=== PATIENT | male | born 1935 | race Caucasian/White ===

== ENCOUNTER 2017-12-08 14:47 | Emergency (ER) | payer OTHER ==
[~2017-12-08] VITALS: Ht 167.6 cm; Wt 81.7 kg
--- NOTE | ~2017-12-08 | EKG ---
[facility] [place] [address] ELECTROCARDIOGRAM REPORT Name: URSZULA SALINAS Room #: DEP Charley#: [id number] Admission: 12/08/17 Attend Phys: Discharge: 12/08/17 Date of : 34 Report #: [id number] THIS REPORT FOR: //name// [facility] ED Test Date: 2017-12-08 Test Time: 15:09:18 Pat Name: URSZULA SALINAS Department: Room: Gender: Emergency Room Physician: MZOOK : 1935 Requested By: Jaquelin Chan Order Number: [id number] MD: Liam Cabezas Measurements Intervals [place] Rate: 60 P: [place]: QRS: 266 QRSD: 122 T: 32 QT: 478 QTc: 478 Interpretive Statements Afib/flutter and ventricular-paced rhythm No further analysis attempted due to paced rhythm Compared to ECG 04/10/2017 07:07:33 No significant changes Electronically Signed On 12-09-2017 8:23:18 CIGAR [employer] by Liam Cabezas [email or web address] <ELECTRONICALLY SIGNED> By: Liam Cabezas MD, [facility] 12/09/17 0823 1509 [id number] Liam Cabezas MD, FACC /EPI
[~2017-12-08 14:47] MED LIST: ADULT LOW DOSE81 MG PO; ALDACTONE50 MG PO; AMIODARONE CV KI1 E1 IV; AVANDARYL 4 MG1 EACH PO; BENICAR20 MG PO; BREO ELLIPTA 11 EACH IH; CARVEDILOL25 MG PO; CIPRO250 M1 PO; CO Q-1030 MG PO; CO Q1060 MG PO; COREG; COREG CR20 MG PO; COREG25 MG PO; COUMADIN 2 MG TA2 M1 PO; COUMADIN 4 MG TA4 M1 PO; DEMADEX20 MG PO; ENOXAPARIN100 MG/1 M INJECTION; FENOFIBRATE160 MG PO; FENOGLIDE40 MG PO; FINOFIBRATE PO; FISH OIL 1,0001 EACH PO; FISHOIL; GLUCOPHAGE1000 MG PO; LIPITOR 20 MG T20 M1 PO; METFORMIN; NYSTATIN1 EA10 TOP; OMEPRAZOLE 20 M20 M1 PO; OMEPRAZOLE20 MG PO; PACERONE 200 M200 M1 PO; PATADAY2.5 ML OPHTHALMIC; PLAVIX 75 MG TA75 M1 PO; PRAVACHOL40 MG PO; TORSEMIDE20 MG PO
[2017-12-08 15:44] LABS: HEMATOCRIT 35.5 % (42.0-52.0); HEMOGLOBIN 11.8 gm/dL (14.0-18.0); MCH 30.7 pg (26.0-34.0); MCHC 33.2 g/dL (28.0-37.0); MCV 92.3 fL (80.0-100.0); PLATELET COUNT 150 thou/uL (150-400); RBC 3.85 mil/uL (4.50-6.00); WBC 6.5 thou/uL (4.0-11.0)
[2017-12-08 16:04] LABS: ABSOLUTE NEUTROPHILS 4.3 thou/uL (1.4-8.2)
[2017-12-08 16:05] LABS: OVALOCYTES FEW; POLYCHROMASIA 1+
[2017-12-08 16:06] LABS: ANION GAP 3 mmol/L (7-16); BUN 16 mg/dL (7-18); CALCIUM 9.4 mg/dL (8.5-10.1); CHLORIDE 104 mmol/L (98-107); CO2 29 mmol/L (21-32); CREATININE 0.9 mg/dL (0.7-1.3); GLUCOSE 101 mg/dL (74-106); POTASSIUM 4.1 mmol/L (3.5-5.1); SODIUM 136 mmol/L (136-145)
[2017-12-08 16:14] LABS: TROPONIN-I < 0.04 ng/mL (<0.06)
[2017-12-08] MEDS ORDERED: TRAZODONE HCL50 MG PO (16:44)
[2017-12-08 16:57] VITALS: BP 104/60
[2017-12-08 17:03] LABS: INR 1.2; PROTIME 12.7 Seconds (9.3-11.4)
== END 2017-12-08 18:17 | disposition home or self-care (01) ==
LOC: ER 14:47
PROVIDERS: Emergency Medicine
DX: R60.0 Localized edema (principal); I48.91 Unspecified atrial fibrillation; I11.0 Hypertensive heart disease with heart failure; I50.9 Heart failure, unspecified; E11.9 Type 2 diabetes mellitus without complications; K21.9 Gastro-esophageal reflux disease without esophagitis; E78.5 Hyperlipidemia, unspecified; M19.90 Unspecified osteoarthritis, unspecified site; I25.10 Atherosclerotic heart disease of native coronary artery without angina pectoris; I25.2 Old myocardial infarction; Z88.0 Allergy status to penicillin; Z88.5 Allergy status to narcotic agent; G47.9 Sleep disorder, unspecified

== ENCOUNTER → 2018-02-28 | Outpatient (CLI) | payer OTHER ==
[~2018-02-28] MED LIST changes: +TRAZODONE HCL50 MG PO
== END ==
LOC: SLEEPLAB 16:39
DX: G47.33 Obstructive sleep apnea (adult) (pediatric) (principal)

== ENCOUNTER → 2018-04-10 | Outpatient (CLI) | payer OTHER | LOC: HYPER 07:07 | DX: E11.622 Type 2 diabetes mellitus with other skin ulcer (principal); L97.811 Non-pressure chronic ulcer of other part of right lower leg limited to breakdown of skin; L97.821 Non-pressure chronic ulcer of other part of left lower leg limited to breakdown of skin; I87.2 Venous insufficiency (chronic) (peripheral); L08.9 Local infection of the skin and subcutaneous tissue, unspecified; R60.0 Localized edema; I48.2 Chronic atrial fibrillation; I21.3 ST elevation (STEMI) myocardial infarction of unspecified site; E11.22 Type 2 diabetes mellitus with diabetic chronic kidney disease; I13.0 Hypertensive heart and chronic kidney disease with heart failure and stage 1 through stage 4 chronic kidney disease, or unspecified chronic kidney disease; N18.2 Chronic kidney disease, stage 2 (mild); I50.9 Heart failure, unspecified; I25.10 Atherosclerotic heart disease of native coronary artery without angina pectoris; M19.90 Unspecified osteoarthritis, unspecified site; K21.9 Gastro-esophageal reflux disease without esophagitis; Z79.01 Long term (current) use of anticoagulants; Z87.891 Personal history of nicotine dependence ==

== ENCOUNTER → 2018-04-24 | Outpatient (CLI) | payer OTHER | LOC: HYPER 06:51 | DX: E11.622 Type 2 diabetes mellitus with other skin ulcer (principal); L97.821 Non-pressure chronic ulcer of other part of left lower leg limited to breakdown of skin; L97.811 Non-pressure chronic ulcer of other part of right lower leg limited to breakdown of skin; I87.2 Venous insufficiency (chronic) (peripheral); E11.22 Type 2 diabetes mellitus with diabetic chronic kidney disease; I13.0 Hypertensive heart and chronic kidney disease with heart failure and stage 1 through stage 4 chronic kidney disease, or unspecified chronic kidney disease; N18.2 Chronic kidney disease, stage 2 (mild); I50.9 Heart failure, unspecified; E11.65 Type 2 diabetes mellitus with hyperglycemia; L08.9 Local infection of the skin and subcutaneous tissue, unspecified; I48.2 Chronic atrial fibrillation; I25.2 Old myocardial infarction; I21.3 ST elevation (STEMI) myocardial infarction of unspecified site; I48.91 Unspecified atrial fibrillation; I25.10 Atherosclerotic heart disease of native coronary artery without angina pectoris; E78.5 Hyperlipidemia, unspecified; M19.90 Unspecified osteoarthritis, unspecified site; K21.9 Gastro-esophageal reflux disease without esophagitis; G47.30 Sleep apnea, unspecified; Z98.49 Cataract extraction status, unspecified eye; Z95.0 Presence of cardiac pacemaker; Z87.891 Personal history of nicotine dependence ==

== ENCOUNTER → 2018-05-22 | Outpatient (CLI) | payer OTHER | LOC: HYPER 06:34 | DX: E11.622 Type 2 diabetes mellitus with other skin ulcer (principal); L97.821 Non-pressure chronic ulcer of other part of left lower leg limited to breakdown of skin; L97.811 Non-pressure chronic ulcer of other part of right lower leg limited to breakdown of skin; I87.2 Venous insufficiency (chronic) (peripheral); E11.22 Type 2 diabetes mellitus with diabetic chronic kidney disease; I13.0 Hypertensive heart and chronic kidney disease with heart failure and stage 1 through stage 4 chronic kidney disease, or unspecified chronic kidney disease; N18.2 Chronic kidney disease, stage 2 (mild); I50.9 Heart failure, unspecified; L08.9 Local infection of the skin and subcutaneous tissue, unspecified; I48.2 Chronic atrial fibrillation; I21.3 ST elevation (STEMI) myocardial infarction of unspecified site; I25.10 Atherosclerotic heart disease of native coronary artery without angina pectoris; E78.5 Hyperlipidemia, unspecified; K21.9 Gastro-esophageal reflux disease without esophagitis; M19.90 Unspecified osteoarthritis, unspecified site; G47.30 Sleep apnea, unspecified; Z95.0 Presence of cardiac pacemaker; Z98.49 Cataract extraction status, unspecified eye; Z79.01 Long term (current) use of anticoagulants; Z87.891 Personal history of nicotine dependence ==

== ENCOUNTER → 2018-06-09 | Outpatient (CLI) | payer OTHER | LOC: HYPER 07:35 | DX: E11.622 Type 2 diabetes mellitus with other skin ulcer (principal); I87.321 Chronic venous hypertension (idiopathic) with inflammation of right lower extremity; L97.811 Non-pressure chronic ulcer of other part of right lower leg limited to breakdown of skin; I87.322 Chronic venous hypertension (idiopathic) with inflammation of left lower extremity; L97.821 Non-pressure chronic ulcer of other part of left lower leg limited to breakdown of skin; E11.22 Type 2 diabetes mellitus with diabetic chronic kidney disease; N18.2 Chronic kidney disease, stage 2 (mild); I21.3 ST elevation (STEMI) myocardial infarction of unspecified site; I48.2 Chronic atrial fibrillation; I25.10 Atherosclerotic heart disease of native coronary artery without angina pectoris; E78.5 Hyperlipidemia, unspecified; M19.90 Unspecified osteoarthritis, unspecified site; K21.9 Gastro-esophageal reflux disease without esophagitis; G47.30 Sleep apnea, unspecified; Z87.891 Personal history of nicotine dependence; Z79.01 Long term (current) use of anticoagulants ==

== ENCOUNTER → 2018-07-20 | Outpatient (CLI) | payer OTHER | LOC: HYPER 06:58 | DX: E11.622 Type 2 diabetes mellitus with other skin ulcer (principal); I87.321 Chronic venous hypertension (idiopathic) with inflammation of right lower extremity; L97.811 Non-pressure chronic ulcer of other part of right lower leg limited to breakdown of skin; I87.322 Chronic venous hypertension (idiopathic) with inflammation of left lower extremity; L97.821 Non-pressure chronic ulcer of other part of left lower leg limited to breakdown of skin; I48.2 Chronic atrial fibrillation; E11.22 Type 2 diabetes mellitus with diabetic chronic kidney disease; I13.0 Hypertensive heart and chronic kidney disease with heart failure and stage 1 through stage 4 chronic kidney disease, or unspecified chronic kidney disease; N18.2 Chronic kidney disease, stage 2 (mild); I50.9 Heart failure, unspecified; I21.3 ST elevation (STEMI) myocardial infarction of unspecified site; I89.0 Lymphedema, not elsewhere classified; I25.10 Atherosclerotic heart disease of native coronary artery without angina pectoris; E78.5 Hyperlipidemia, unspecified; I25.2 Old myocardial infarction; K21.9 Gastro-esophageal reflux disease without esophagitis; G47.30 Sleep apnea, unspecified; M19.90 Unspecified osteoarthritis, unspecified site; Z87.891 Personal history of nicotine dependence; Z79.01 Long term (current) use of anticoagulants ==

== ENCOUNTER 2018-08-09 10:36 | Inpatient (IN) | payer OTHER ==
[~2018-08-09] VITALS: Ht 172.7 cm; Wt 77.6 kg
--- NOTE | ~2018-08-09 | HC ---
[facility] [address] CONSULTATION Name: URSZULA SALINAS Room #: 461-P ADM IN M.R.#: [id number] Admission: 08/09/18 Attend Phys: Anson Jarvis DO Discharge: Date of : 34 Report #: [id number] THIS REPORT FOR: //name// CC: Anson Owens DATE OF SERVICE: 08/10/2018 CHIEF COMPLAINT: Left lower extremity ulcerations with bilateral lower extremity edema. HISTORY OF PRESENT ILLNESS: This is an 82-year-old male patient who presents to the hospital for evaluation of intractable back pain. He has been a patient of ours in the wound clinic for a venous-type ulceration of both lower extremities. We have been managing him with local dressings and multilayer compression bandaging and he has done quite well. He is here in the hospital. We have been asked to see him with regard to ongoing wound care. The patient's past medical history is positive for hypertension, hyperlipidemia, diabetes mellitus, obstructive sleep apnea and currently for back pain. ALLERGIES: PENICILLIN, PROPOXYPHENE AND MORPHINE. MEDICATIONS: Include aspirin, Glucophage, omeprazole, torsemide, fish oil, Coumadin, atorvastatin and fluticasone. PAST MEDICAL HISTORY: Positive for atrial fibrillation, hypertension, diabetes, cardiomyopathy, sleep apnea, coronary artery disease, previous myocardial infarction and chronic kidney disease stage 2. SOCIAL HISTORY: The patient is a previous smoker. Denies alcohol use or drug use. FAMILY HISTORY: Noncontributory. REVIEW OF SYSTEMS: CONSTITUTIONAL: The patient denies fever, chills or weight loss. NEUROLOGIC: The patient denies focal weakness, numbness or tingling. EYES: The patient denies visual changes, redness or drainage. ENT: The patient denies earache, nasal drainage or sore throat. CARDIOVASCULAR: The patient denies chest pain, palpitations or diaphoresis. PULMONARY: The patient denies cough or shortness of breath. GASTROINTESTINAL: The patient denies nausea, vomiting, diarrhea or abdominal pain. ORTHOPEDIC: The patient does complain of pain in his low back. Denies radiation to his extremities. He states it is somewhat improved since being hospitalized. Other systems in a 14-point review of systems are negative. [facility] [address] [place] [address] CONSULTATION Name: URSZULA SALINAS Room #: 461-P ADM IN M.R.#: [id number] Admission: 08/09/18 Attend Phys: Anson Jarvis DO Discharge: Date of : 34 Report #: [id number] PHYSICAL EXAMINATION: VITAL SIGNS: At this time include pulse rate 60, blood pressure 117/76. Temperature is not yet documented. GENERAL: This is a chronically ill-appearing male patient who appears to be in minimal distress. HEENT: Head normocephalic. Nose and throat are clear. NECK: Supple. LUNGS: Clear. ABDOMEN: Soft. EXTREMITIES: Lower extremities demonstrate that there are two small ulcerations on the lateral aspect of the left lower leg. These are improved since last evaluation. The edema seems well controlled with the compression bandaging. CLINICAL IMPRESSION: 1. Venous-type ulcerations, left lower extremity. 2. Intractable back pain. 3. Diabetes mellitus. 4. Venous insufficiency, stasis dermatitis, bilateral lower extremities. 5. History of atrial fibrillation, currently rate controlled. 6. History of congestive heart failure. 7. Chronic kidney disease stage 2. RECOMMENDATIONS: At this point in time, we will maintain lower extremity edema control with continued use of multilayer compression bandage and we will likely change these twice a week and as needed. The patient is agreeable to this plan of care. We will recommend aggressive nutritional support to maximize wound healing and glycemic control. Continue with current medications. <ELECTRONICALLY SIGNED> By: Vaibhav Travis MD 08/11/18 0827 1126 0107 Vaibhav Travis MD /nt
[2018-08-09 10:41] VITALS: BP 116/62
[2018-08-09 11:55] LABS: WBC 10.1 thou/uL (4.0-11.0)
[2018-08-09 12:00] LABS: MCH 30.7 pg (26.0-34.0)
[2018-08-09 12:05] LABS: CALCIUM 9.5 mg/dL (8.5-10.1); CREATININE 1.1 mg/dL (0.7-1.3); POTASSIUM 4.2 mmol/L (3.5-5.1)
[2018-08-09 12:06] LABS: HEMATOCRIT 32.1 % (42.0-52.0); HEMOGLOBIN 10.6 gm/dL (14.0-18.0); MCHC 33.1 g/dL (28.0-37.0); PLATELET COUNT 221 thou/uL (150-400); RBC 3.45 mil/uL (4.50-6.00); RDW 15.1 % (10.5-14.5)
[2018-08-09 12:25] LABS: ABSOLUTE NEUTROPHILS 8.7 thou/uL (1.4-8.2)
[2018-08-09 12:26] LABS: PLATELET ESTIMATE NORMAL
[2018-08-09 13:27] LABS: URINE BILIRUBIN NEGATIVE (Negative); URINE BLOOD NEGATIVE (Negative); URINE CLARITY CLEAR; URINE COLOR YELLOW; URINE GLUCOSE-RANDOM* NEGATIVE (Negative); URINE KETONES TRACE (Negative); URINE LEUKOCYTES-REFLEX NEGATIVE (Negative); URINE NITRITE-REFLEX NEGATIVE (Negative); URINE PROTEIN (DIPSTICK) TRACE (Negative); URINE SPECIFIC GRAVITY 1.025 (1.005-1.035)
[2018-08-09 14:47] VITALS: BP 102/52
[2018-08-09 16:17] VITALS: BP 105/53
[2018-08-09 16:54] VITALS: BP 102/52
[2018-08-09 17:50] VITALS: BP 107/61
[2018-08-10 00:05] VITALS: BP 96/73
[2018-08-10 04:24] VITALS: BP 107/59
[2018-08-10 06:25] LABS: PROTIME 122.4 Seconds (9.3-11.4)
[2018-08-10 06:41] LABS: INR 12.5
[2018-08-10 07:35] VITALS: BP 117/76
[2018-08-10 12:36] LABS: PROTIME 152.6 Seconds (9.3-11.4)
[2018-08-10 12:43] LABS: INR 15.6
[2018-08-10 14:02] VITALS: BP 88/53
[2018-08-10 14:41] LABS: ABSOLUTE NEUTROPHILS 6.5 thou/uL (1.4-8.2); BASOPHILS 0.5 % (0.0-2.0); EOSINOPHILS 2.4 % (0.0-3.0); HEMATOCRIT 30.4 % (42.0-52.0); HEMOGLOBIN 10.3 gm/dL (14.0-18.0); LYMPHOCYTES 7.9 % (24.0-44.0); MCH 31.5 pg (26.0-34.0); MCHC 33.8 g/dL (28.0-37.0); MONOCYTES 7.8 % (1.0-8.0); PLATELET COUNT 192 thou/uL (150-400); POLYS 81.4 % (36.0-66.0); RBC 3.27 mil/uL (4.50-6.00); RDW 15.5 % (10.5-14.5)
[2018-08-10 18:44] VITALS: BP 89/50
[2018-08-10 20:17] VITALS: BP 93/53
[2018-08-10 20:52] LABS: PROTIME 183.7 Seconds (9.3-11.4)
[2018-08-10 20:59] LABS: INR > 18.0
[2018-08-11 04:10] VITALS: BP 110/66
[2018-08-11 06:50] LABS: PROTIME 76.5 Seconds (9.3-11.4)
[2018-08-11 07:10] LABS: INR 7.7
[2018-08-11 08:00] VITALS: BP 119/65
[2018-08-11 22:04] VITALS: BP 102/46
[2018-08-12 08:02] LABS: HEMATOCRIT 31.2 % (42.0-52.0); HEMOGLOBIN 10.4 gm/dL (14.0-18.0); MCHC 33.4 g/dL (28.0-37.0); MCV 92.9 fL (80.0-100.0); RBC 3.35 mil/uL (4.50-6.00); RDW 15.2 % (10.5-14.5); WBC 5.4 thou/uL (4.0-11.0)
[2018-08-12 08:14] VITALS: BP 101/60
[2018-08-12 08:14] LABS: PROTIME 16.8 Seconds (9.3-11.4)
[2018-08-12 08:15] LABS: CALCIUM 9.1 mg/dL (8.5-10.1); INR 1.7; POTASSIUM 3.6 mmol/L (3.5-5.1)
[2018-08-12 21:32] VITALS: BP 108/62
[2018-08-13 08:00] VITALS: BP 102/58
[2018-08-13 08:04] VITALS: BP 102/58
[2018-08-13 11:25] LABS: INR 1.4; PROTIME 14.6 Seconds (9.3-11.4)
[2018-08-13 17:20] VITALS: BP 122/65
[2018-08-13 19:48] VITALS: BP 105/56
[2018-08-14 07:20] VITALS: BP 109/60
[2018-08-14 08:02] LABS: INR 1.4
[2018-08-14 23:34] VITALS: BP 120/62
[2018-08-15 07:45] VITALS: BP 111/67
[2018-08-15 08:25] LABS: INR 1.5; PROTIME 15.2 Seconds (9.3-11.4)
[2018-08-15 08:48] VITALS: BP 111/67
[2018-08-15] MEDS ORDERED: CYCLOBENZAPRINE5 MG PO (12:39)
[2018-08-15] MEDS ORDERED: GLIPIZIDE 5 MG T5 MG PO (12:49)
[2018-08-15] MEDS ORDERED: VOLTAREN GEL 1100 G1 TOP (12:49)
== END 2018-08-15 16:00 | DRG 551 ==
LOC: ER 10:36 → SICU 13:59 → EROBS 13:59 → 4W 13:59 → SICU 08-11 13:44
PROVIDERS: Family Medicine; Family Medicine Geriatric Medicine; Internal Medicine; Nurse Practitioner; Student in an Organized Health Care Education/Training Program
PROC: 5A09357 Assistance with Respiratory Ventilation, Less than 24 Consecutive Hours, Continuous Positive Airway Pressure (ICD-10-PCS; principal; 2018-08-10)
PROC: 5A09357 Assistance with Respiratory Ventilation, Less than 24 Consecutive Hours, Continuous Positive Airway Pressure (ICD-10-PCS; 2018-08-11)
DX: M47.896 Other spondylosis, lumbar region (principal); E43 Unspecified severe protein-calorie malnutrition; I42.9 Cardiomyopathy, unspecified; I13.0 Hypertensive heart and chronic kidney disease with heart failure and stage 1 through stage 4 chronic kidney disease, or unspecified chronic kidney disease; I50.22 Chronic systolic (congestive) heart failure; B49 Unspecified mycosis; I48.91 Unspecified atrial fibrillation; K21.9 Gastro-esophageal reflux disease without esophagitis; R26.2 Difficulty in walking, not elsewhere classified; I87.2 Venous insufficiency (chronic) (peripheral); R26.9 Unspecified abnormalities of gait and mobility; N18.3 Chronic kidney disease, stage 3 (moderate); R62.7 Adult failure to thrive; I25.10 Atherosclerotic heart disease of native coronary artery without angina pectoris; G47.33 Obstructive sleep apnea (adult) (pediatric); E11.22 Type 2 diabetes mellitus with diabetic chronic kidney disease; E78.5 Hyperlipidemia, unspecified; M19.90 Unspecified osteoarthritis, unspecified site; I25.2 Old myocardial infarction; Z95.810 Presence of automatic (implantable) cardiac defibrillator; Z95.5 Presence of coronary angioplasty implant and graft; Z87.891 Personal history of nicotine dependence; Z90.49 Acquired absence of other specified parts of digestive tract; Z79.01 Long term (current) use of anticoagulants; Z79.82 Long term (current) use of aspirin; Z79.51 Long term (current) use of inhaled steroids; Z79.84 Long term (current) use of oral hypoglycemic drugs; Z79.899 Other long term (current) drug therapy; Z88.5 Allergy status to narcotic agent; Z88.0 Allergy status to penicillin; Z88.8 Allergy status to other drugs, medicaments and biological substances; Z28.21 Immunization not carried out because of patient refusal
CPT/HCPCS: 10040; 15000

== ENCOUNTER 2018-08-23 06:50 | Inpatient (IN) | payer OTHER ==
[~2018-08-23] VITALS: Ht 167.6 cm; Wt 80.3 kg
--- NOTE | ~2018-08-23 | HC ---
[facility] [place] [address] CONSULTATION Name: URSZULA SALINAS Room #: 220-P ADM IN M.R.#: [id number] Admission: 08/23/18 Attend Phys: Kurtis Montelongo Discharge: Date of : 34 Report #: [id number] THIS REPORT FOR: //name// CC: Kurtis Brandon DATE OF SERVICE: 08/24/2018 REASON FOR CONSULTATION: I was asked to evaluate concerning lower extremity infection. HISTORY OF PRESENT ILLNESS: The patient is an 82-year-old with underlying history of ischemic cardiomyopathy, chronic peripheral edema, obstructive sleep apnea, hypertension and diabetes. He has had low back pain issues. He was hospitalized last month for such. He has noticed continued lower extremity edema. He has developed wounds to his left lower leg. This failed to improve with outpatient treatment. Hospitalized now for further care. He has had pain in his lower legs, he rates at low level. He has had no fever, chills or sweats. Denies any specific trauma. He does have low back pain, which is the predominant issue for his pain control. REVIEW OF SYSTEMS: Denies any weight loss, malaise, fever, chills or sweats. No visual changes. No auditory changes. Denies any cough or sputum production. No chest pain, palpitations or syncopal episodes. Arterial studies to his lower extremities were negative for large vessel obstruction. No GI complaints. Denies any issues. MUSCULOSKELETAL: As above. NEUROLOGIC: As above. PSYCHIATRIC: Negative. SKIN: As above. LYMPH: Negative. HEMATOLOGIC: Negative. ALLERGIES: PENICILLIN WITH SWELLING, PROPOXYPHENE, MORPHINE. Unclear if he has been on cephalosporins. MEDICATIONS: As noted on his MAR including aspirin, Coumadin, Lipitor, Breo, omega 3, torsemide, omeprazole, now clindamycin. PAST MEDICAL HISTORY: Tonsillectomy, hypertension, diabetes, gastroesophageal reflux, cardiomyopathy, obstructive sleep apnea, coronary artery disease, non-STEMI with stenting, hyperlipidemia, arthritis, chronic kidney disease, atrial fibrillation, umbilical hernia repair, appendectomy, hemorrhoidectomy, left knee surgery, sick sinus syndrome with defibrillator pacemaker, cataract surgery, chronic low back pain, scoliosis. [facility] [address] [place] [address] CONSULTATION Name: URSZULA SALINAS Room #: 220-P ADM IN M.R.#: [id number] Admission: 08/23/18 Attend Phys: Kurtis Montelongo Discharge: Date of : 34 Report #: [id number] FAMILY HISTORY: Noncontributory. SOCIAL HISTORY: Currently has been in the assisted living. He is a past smoker, no significant alcohol intake. PHYSICAL EXAMINATION: GENERAL: Alert, cooperative, able to get in bed on his own. No acute distress. Appeared his stated age, mental status was normal. HEENT: Eyes nonicteric, no conjunctival injection. Mouth without mucositis or ulceration. Dentition in fair repair. NECK: Supple with no thyromegaly, mass or JVD. LUNGS: Clear. HEART: Irregular without appreciable murmur, gallop or rub. ABDOMEN: Soft, mildly protuberant, nontender, no hepatosplenomegaly or mass. GENITOURINARY: External genitalia unremarkable with no lesions. He does have an intertrigo involving the groin. EXTREMITIES: With 2+ lower extremity edema. BACK: Nontender with no CVA tenderness. No palpable lymphadenopathy. Pulses were palpable in both groins and popliteals. 1+ pulses in posterior tibial and dorsalis pedis bilaterally. NEUROLOGIC: Cranial nerves intact. Strength in upper and lower extremities within normal limits. Sensation upper and lower extremities normal. Mood normal. SKIN: Venous stasis dermatitis changes with cellulitis, left greater than right. Shallow ulceration, pretibial, left leg. Mild tenderness pretibial region bilaterally. Tinea pedis both feet, left greater than right. LABORATORY STUDIES: Creatinine 0.9. Liver function test normal. Alkaline phosphatase 130. Hemoglobin 10.3, WBC 7.2, platelet count 196,000. Arterial studies negative. Urinalysis unremarkable. IMPRESSION: 1. An 82-year-old with chronic venous stasis disease, right-sided congestive heart failure, likely cause, now with secondary venous stasis disease and cellulitis. He has developed wounds to his leg. Although no large vessel disease, it appears he does have some small vessel disease present. 2. Sick sinus syndrome with permanent pacemaker, cardiomyopathy. 3. Chronic low back pain. 4. Obstructive sleep apnea, requiring CPAP. 5. ALLERGIES: PENICILLIN. RECOMMENDATION: Continue with more aggressive leg elevation and diuretic therapy. Continue with topical treatment with antifungal therapy along with topical steroid. Follow laboratory studies. [facility] [address] [place] [address] CONSULTATION Name: URSZULA SALINAS Room #: 220-P [facility] IN M.R.#: [id number] Admission: 08/23/18 Attend Phys: Kurtis Montelongo Discharge: Date of : 34 Report #: [id number] Duration of IV antibiotic therapy will depend on his response to initial therapy. We will do further screening to assess his PENICILLIN ALLERGY. <ELECTRONICALLY SIGNED> By: Randy Torrez MD 08/25/18 1437 1131 1531 Randy Torrez MD /nt
--- NOTE | ~2018-08-23 | HC ---
[facility] [place] [address] CONSULTATION Name: URSZULA SALINAS Room #: 220-P [facility] IN M.R.#: [id number] Admission: 08/23/18 Attend Phys: Kurtis Montelongo Discharge: 08/25/18 Date of : 34 Report #: [id number] THIS REPORT FOR: //name// CC: Kurtis Montano Brandon DATE OF SERVICE: 08/24/2018 CHIEF COMPLAINT: Lower extremity edema, ulceration and cellulitis. HISTORY OF PRESENT ILLNESS: This is an 82-year-old male patient with whom I am familiar from recent hospitalization. He has had history of bilateral lower extremity edema. He was discharged from here. He states that he may have not had multilayer compression applied after leaving the hospital, has developed increasing pain, swelling, a little bit of drainage and blistering as well as some dyspnea that has developed over the last several days as well. PAST MEDICAL HISTORY: Positive for atrial fibrillation, hypertension, diabetes, cardiomyopathy, sleep apnea, coronary artery disease, previous myocardial infarction, chronic kidney disease stage 2. MEDICATIONS: Include aspirin, Glucophage, omeprazole, torsemide, fish oil, Coumadin, atorvastatin and fluticasone. ALLERGIES: PENICILLIN, PROPOXYPHENE AND MORPHINE. SOCIAL HISTORY: The patient had previous smoking. Denies alcohol or drug use. FAMILY HISTORY: Noncontributory. REVIEW OF SYSTEMS: CONSTITUTIONAL: The patient denies fever, chills or weight loss. NEUROLOGICAL: The patient denies focal weakness, numbness or tingling. EYES: The patient denies any visual changes, redness or drainage. ENT: The patient denies earache, nasal drainage or sore throat. CARDIOVASCULAR: The patient denies chest pain, palpitations, diaphoresis. PULMONARY: The patient denies cough, does complain of shortness of breath and some orthopnea. GASTROINTESTINAL: The patient denies nausea, vomiting, diarrhea or abdominal pain. ORTHOPEDIC: The patient does complain of pain, swelling and redness of both lower extremities. Other systems in a 14-point review of systems are negative. PHYSICAL EXAMINATION: [facility] [address] [place] [address] CONSULTATION Name: URSZULA SALINAS Room #: 220-P [facility] IN M.R.#: [id number] Admission: 08/23/18 Attend Phys: Josiahemmanuel Ryder Montelongo Discharge: 08/25/18 Date of : 34 Report #: [id number] VITAL SIGNS: At this time include pulse 103, respiratory rate 18, blood pressure 103/63, temperature 97.1. GENERAL: This is a chronically ill-appearing male patient who appears to be in minimal distress. HEENT: Head normocephalic. Nose and throat are clear. NECK: Supple. LUNGS: Clear. HEART: Irregular without murmur. ABDOMEN: Soft. Bowel sounds present. EXTREMITIES: Demonstrate 2-3+ edema, some blistering and increased erythema compared to his last evaluation a couple of weeks ago. NEUROLOGIC: The patient is alert, does move all 4 extremities spontaneously. LABORATORY DATA: Includes sodium 139, potassium is 3.4, chloride 102, CO2 of 30, BUN 23, creatinine 0.9, glucose of 80, and albumin is 2.8. White blood cell count 7.2 with a hemoglobin of 10.3. CLINICAL IMPRESSION: 1. Bilateral lower extremity edema with new evidence of ulceration and blistering. 2. Mild cellulitis of lower extremities. 3. Evidence of volume overload. 4. Cardiomyopathy. 5. Type 2 diabetes mellitus. 6. History of chronic atrial fibrillation. RECOMMENDATIONS: At this point in time, we will recommend multilayer compression bandaging both lower extremities as well as elevation. Hopefully, with better compression and elevation, we will get edema control and regain some of the tissue loss. We will recommend aggressive nutritional support to maximize wound healing and glycemic control. Continue with all current medications. I appreciate being asked to see him again in consultation. <ELECTRONICALLY SIGNED> By: Vaibhav Travis MD 08/28/18 1910 [id number] 0156 Vaibhav Travis MD /nt
[~2018-08-23 06:50] MED LIST changes: +CYCLOBENZAPRINE5 MG PO; +GLIPIZIDE 5 MG T5 MG PO; +VOLTAREN GEL 1100 G1 TOP
[2018-08-23 12:49] VITALS: BP 107/61
[2018-08-23 14:40] LABS: ABSOLUTE NEUTROPHILS 6.1 thou/uL (1.4-8.2); BASOPHILS 0.8 % (0.0-2.0); EOSINOPHILS 2.9 % (0.0-3.0); HEMATOCRIT 32.8 % (42.0-52.0); LYMPHOCYTES 9.9 % (24.0-44.0); MCH 31.2 pg (26.0-34.0); MCHC 33.7 g/dL (28.0-37.0); MCV 92.6 fL (80.0-100.0); MONOCYTES 9.7 % (1.0-8.0); PLATELET COUNT 200 thou/uL (150-400); POLYS 76.7 % (36.0-66.0); RBC 3.54 mil/uL (4.50-6.00); RDW 16.1 % (10.5-14.5)
[2018-08-23 14:51] LABS: INR 1.7; PROTIME 17.3 Seconds (9.3-11.4)
[2018-08-23 14:56] LABS: CALCIUM 9.4 mg/dL (8.5-10.1); CREATININE 1.1 mg/dL (0.7-1.3); POTASSIUM 3.6 mmol/L (3.5-5.1); TOTAL BILIRUBIN 0.9 mg/dL (<0.1-1.0); TOTAL PROTEIN 7.5 g/dL (6.4-8.2)
[2018-08-23 15:23] LABS: URINE BILIRUBIN NEGATIVE (Negative); URINE BLOOD NEGATIVE (Negative); URINE CLARITY CLEAR; URINE COLOR YELLOW; URINE GLUCOSE-RANDOM* NEGATIVE (Negative); URINE KETONES NEGATIVE (Negative); URINE LEUKOCYTES-REFLEX NEGATIVE (Negative); URINE NITRITE-REFLEX NEGATIVE (Negative); URINE PROTEIN (DIPSTICK) NEGATIVE (Negative); URINE SPECIFIC GRAVITY 1.015 (1.005-1.035); URINE UROBILINOGEN 0.2 E.U./dl (0.2-1.0)
[2018-08-23 19:15] VITALS: BP 101/58
[2018-08-23 20:00] VITALS: BP 101/58
[2018-08-24 00:07] VITALS: BP 104/73
[2018-08-24 03:40] LABS: INR 1.7
[2018-08-24 03:43] LABS: ABSOLUTE NEUTROPHILS 5.3 thou/uL (1.4-8.2); BASOPHILS 0.7 % (0.0-2.0); EOSINOPHILS 3.2 % (0.0-3.0); HEMATOCRIT 30.7 % (42.0-52.0); HEMOGLOBIN 10.3 gm/dL (14.0-18.0); LYMPHOCYTES 10.4 % (24.0-44.0); MCH 31.1 pg (26.0-34.0); MCHC 33.6 g/dL (28.0-37.0); MCV 92.8 fL (80.0-100.0); PLATELET COUNT 196 thou/uL (150-400); POLYS 73.7 % (36.0-66.0); RBC 3.31 mil/uL (4.50-6.00); RDW 16.4 % (10.5-14.5); WBC 7.2 thou/uL (4.0-11.0)
[2018-08-24 03:50] LABS: ALBUMIN 2.8 g/dL (3.4-5.0); CALCIUM 8.8 mg/dL (8.5-10.1); CREATININE 0.9 mg/dL (0.7-1.3); MAGNESIUM 1.8 mg/dL (1.8-2.4); POTASSIUM 3.4 mmol/L (3.5-5.1); TOTAL PROTEIN 6.9 g/dL (6.4-8.2)
[2018-08-24 05:52] VITALS: BP 107/61
[2018-08-24 08:10] VITALS: BP 108/61
[2018-08-24 11:15] VITALS: BP 124/74
[2018-08-24 15:25] VITALS: BP 103/63
[2018-08-24 19:31] VITALS: BP 99/60
[2018-08-25 07:15] VITALS: BP 105/64
[2018-08-25 08:09] LABS: FOLIC ACID 21.2 ng/mL (8.6-58.9)
[2018-08-25 09:06] VITALS: BP 105/64
[2018-08-25] MEDS ORDERED: CLEOCIN HCL150 MG PO (11:49)
== END 2018-08-25 15:55 | DRG 592 ==
LOC: HYPER 06:50 → 2N 12:16 → HYPER 16:23 → 2N 08-24 17:20 → SICU 08-24 18:22
PROVIDERS: Nurse Practitioner; Nurse Practitioner Family
DX: L97.929 Non-pressure chronic ulcer of unspecified part of left lower leg with unspecified severity (principal); E43 Unspecified severe protein-calorie malnutrition; L03.116 Cellulitis of left lower limb; I50.22 Chronic systolic (congestive) heart failure; I13.0 Hypertensive heart and chronic kidney disease with heart failure and stage 1 through stage 4 chronic kidney disease, or unspecified chronic kidney disease; L03.115 Cellulitis of right lower limb; L97.919 Non-pressure chronic ulcer of unspecified part of right lower leg with unspecified severity; I25.5 Ischemic cardiomyopathy; G47.33 Obstructive sleep apnea (adult) (pediatric); K21.9 Gastro-esophageal reflux disease without esophagitis; I25.10 Atherosclerotic heart disease of native coronary artery without angina pectoris; E78.5 Hyperlipidemia, unspecified; M19.90 Unspecified osteoarthritis, unspecified site; G89.29 Other chronic pain; M54.5 Low back pain; E11.22 Type 2 diabetes mellitus with diabetic chronic kidney disease; I87.8 Other specified disorders of veins; I49.5 Sick sinus syndrome; S80.822A Blister (nonthermal), left lower leg, initial encounter; S80.821A Blister (nonthermal), right lower leg, initial encounter; E87.70 Fluid overload, unspecified; I48.2 Chronic atrial fibrillation; N18.2 Chronic kidney disease, stage 2 (mild); M62.84 Sarcopenia; E87.6 Hypokalemia; I89.0 Lymphedema, not elsewhere classified; Z88.6 Allergy status to analgesic agent; Z88.0 Allergy status to penicillin; Z88.8 Allergy status to other drugs, medicaments and biological substances; Z95.5 Presence of coronary angioplasty implant and graft; I25.2 Old myocardial infarction; Z95.0 Presence of cardiac pacemaker; Z98.49 Cataract extraction status, unspecified eye; Z90.49 Acquired absence of other specified parts of digestive tract; Z87.891 Personal history of nicotine dependence; Z79.82 Long term (current) use of aspirin; Z79.899 Other long term (current) drug therapy; Z68.28 Body mass index [BMI] 28.0-28.9, adult
CPT/HCPCS: 10081; 10797; 15002

== ENCOUNTER → 2018-09-26 | Outpatient (CLI) | payer OTHER ==
[~2018-09-26] MED LIST changes: +CLEOCIN HCL150 MG PO
== END ==
LOC: HYPER 06:52
DX: E11.622 Type 2 diabetes mellitus with other skin ulcer (principal); I87.333 Chronic venous hypertension (idiopathic) with ulcer and inflammation of bilateral lower extremity; L97.821 Non-pressure chronic ulcer of other part of left lower leg limited to breakdown of skin; L97.811 Non-pressure chronic ulcer of other part of right lower leg limited to breakdown of skin; E11.649 Type 2 diabetes mellitus with hypoglycemia without coma; E11.22 Type 2 diabetes mellitus with diabetic chronic kidney disease; I13.0 Hypertensive heart and chronic kidney disease with heart failure and stage 1 through stage 4 chronic kidney disease, or unspecified chronic kidney disease; N18.2 Chronic kidney disease, stage 2 (mild); I50.9 Heart failure, unspecified; E78.5 Hyperlipidemia, unspecified; I21.3 ST elevation (STEMI) myocardial infarction of unspecified site; I89.0 Lymphedema, not elsewhere classified; I48.2 Chronic atrial fibrillation; I25.10 Atherosclerotic heart disease of native coronary artery without angina pectoris; I25.5 Ischemic cardiomyopathy; G47.30 Sleep apnea, unspecified; K21.9 Gastro-esophageal reflux disease without esophagitis; M19.90 Unspecified osteoarthritis, unspecified site; Z87.891 Personal history of nicotine dependence; Z79.01 Long term (current) use of anticoagulants

== ENCOUNTER → 2018-10-24 | Outpatient (CLI) | payer OTHER | LOC: HYPER 06:55 | DX: E11.622 Type 2 diabetes mellitus with other skin ulcer (principal); I87.333 Chronic venous hypertension (idiopathic) with ulcer and inflammation of bilateral lower extremity; L97.821 Non-pressure chronic ulcer of other part of left lower leg limited to breakdown of skin; L97.811 Non-pressure chronic ulcer of other part of right lower leg limited to breakdown of skin; E11.649 Type 2 diabetes mellitus with hypoglycemia without coma; E11.22 Type 2 diabetes mellitus with diabetic chronic kidney disease; I13.0 Hypertensive heart and chronic kidney disease with heart failure and stage 1 through stage 4 chronic kidney disease, or unspecified chronic kidney disease; N18.2 Chronic kidney disease, stage 2 (mild); I50.9 Heart failure, unspecified; E78.5 Hyperlipidemia, unspecified; G47.30 Sleep apnea, unspecified; I48.2 Chronic atrial fibrillation; I21.3 ST elevation (STEMI) myocardial infarction of unspecified site; I89.0 Lymphedema, not elsewhere classified; I25.10 Atherosclerotic heart disease of native coronary artery without angina pectoris; I25.5 Ischemic cardiomyopathy; K21.9 Gastro-esophageal reflux disease without esophagitis; M19.90 Unspecified osteoarthritis, unspecified site; Z87.891 Personal history of nicotine dependence; Z79.01 Long term (current) use of anticoagulants ==

== ENCOUNTER → 2019-01-15 | Outpatient (CLI) | payer OTHER | LOC: HYPER 11-21 09:37 | DX: E11.622 Type 2 diabetes mellitus with other skin ulcer (principal); I87.331 Chronic venous hypertension (idiopathic) with ulcer and inflammation of right lower extremity; L97.811 Non-pressure chronic ulcer of other part of right lower leg limited to breakdown of skin; I87.322 Chronic venous hypertension (idiopathic) with inflammation of left lower extremity; I89.0 Lymphedema, not elsewhere classified; E11.22 Type 2 diabetes mellitus with diabetic chronic kidney disease; I13.0 Hypertensive heart and chronic kidney disease with heart failure and stage 1 through stage 4 chronic kidney disease, or unspecified chronic kidney disease; I50.9 Heart failure, unspecified; N18.2 Chronic kidney disease, stage 2 (mild); E78.5 Hyperlipidemia, unspecified; G47.30 Sleep apnea, unspecified; I48.2 Chronic atrial fibrillation; I21.3 ST elevation (STEMI) myocardial infarction of unspecified site; I25.10 Atherosclerotic heart disease of native coronary artery without angina pectoris; I25.5 Ischemic cardiomyopathy; K21.9 Gastro-esophageal reflux disease without esophagitis; M19.90 Unspecified osteoarthritis, unspecified site; Z87.891 Personal history of nicotine dependence; Z79.01 Long term (current) use of anticoagulants ==

== ENCOUNTER → 2019-02-14 | Outpatient (CLI) | payer OTHER | LOC: HYPER 06:32 | DX: E11.622 Type 2 diabetes mellitus with other skin ulcer (principal); I87.322 Chronic venous hypertension (idiopathic) with inflammation of left lower extremity; L97.821 Non-pressure chronic ulcer of other part of left lower leg limited to breakdown of skin; I87.321 Chronic venous hypertension (idiopathic) with inflammation of right lower extremity; I89.0 Lymphedema, not elsewhere classified; R60.0 Localized edema; S81.801D Unspecified open wound, right lower leg, subsequent encounter; S01.80XA Unspecified open wound of other part of head, initial encounter; E11.22 Type 2 diabetes mellitus with diabetic chronic kidney disease; I13.0 Hypertensive heart and chronic kidney disease with heart failure and stage 1 through stage 4 chronic kidney disease, or unspecified chronic kidney disease; N18.2 Chronic kidney disease, stage 2 (mild); I50.9 Heart failure, unspecified; E78.5 Hyperlipidemia, unspecified; G47.30 Sleep apnea, unspecified; I25.10 Atherosclerotic heart disease of native coronary artery without angina pectoris; I25.5 Ischemic cardiomyopathy; I48.2 Chronic atrial fibrillation; I21.3 ST elevation (STEMI) myocardial infarction of unspecified site; K21.9 Gastro-esophageal reflux disease without esophagitis; M19.90 Unspecified osteoarthritis, unspecified site; Z87.891 Personal history of nicotine dependence; Z79.01 Long term (current) use of anticoagulants; X58.XXXA Exposure to other specified factors, initial encounter; Y93.89 Activity, other specified; Y92.89 Other specified places as the place of occurrence of the external cause; Y99.8 Other external cause status ==

== ENCOUNTER 2019-02-27 06:56 | Inpatient (IN) | payer OTHER ==
[~2019-02-27] VITALS: Ht 167.6 cm; Wt 84.8 kg
[2019-02-27 13:35] LABS: HEMATOCRIT 31.4 % (42.0-52.0); HEMOGLOBIN 10.2 gm/dL (14.0-18.0); MCHC 32.7 g/dL (28.0-37.0); MCV 91.9 fL (80.0-100.0); PLATELET COUNT 184 thou/uL (150-400); RBC 3.41 mil/uL (4.50-6.00); RDW 19.2 % (10.5-14.5); WBC 6.2 thou/uL (4.0-11.0)
[2019-02-27 13:50] LABS: CALCIUM 9.2 mg/dL (8.5-10.1); CREATININE 1.3 mg/dL (0.7-1.3); INR 1.3; MAGNESIUM 2.2 mg/dL (1.8-2.4); POTASSIUM 3.9 mmol/L (3.5-5.1); PROTIME 13.8 Seconds (9.3-11.4); TOTAL BILIRUBIN 1.1 mg/dL (<0.1-1.0); TOTAL PROTEIN 7.2 g/dL (6.4-8.2)
[2019-02-27 14:24] LABS: ABSOLUTE NEUTROPHILS 4.7 thou/uL (1.4-8.2)
[2019-02-27 14:25] LABS: ANISOCYTOSIS 2+; OVALOCYTES 1+
[2019-02-27 14:56] LABS: URINE BILIRUBIN NEGATIVE (Negative); URINE BLOOD NEGATIVE (Negative); URINE CLARITY CLEAR; URINE COLOR YELLOW; URINE GLUCOSE-RANDOM* NEGATIVE (Negative); URINE KETONES NEGATIVE (Negative); URINE LEUKOCYTES-REFLEX NEGATIVE (Negative); URINE NITRITE-REFLEX NEGATIVE (Negative); URINE PROTEIN (DIPSTICK) NEGATIVE (Negative); URINE SPECIFIC GRAVITY 1.015 (1.005-1.035); URINE UROBILINOGEN 0.2 E.U./dl (0.2-1.0)
--- NOTE | 2019-02-27 19:06 | NUR ---
Received pt from the [facility] office after lunch. Started IV line on his right forearm 22 gauge. Pt stated he had gained 15 pounds in a span of 2 days, (+) cough, pt claims to be able to cough out thick sputum but this was not witnessed. Bilateral LLE cellulitis and edema has been noted, refused to unwrap the dressing since this was just wraped at the doctors office an hour prior to his arrival at the [facility]. POC followed all medications given, strict i and o and daily weights started.
[2019-02-27 19:25] VITALS: BP 104/67
--- NOTE | 2019-02-28 04:33 | NUR ---
Pt. rested quietly most of the night when checked on during frequent rounds. He has been up in the recliner chair by his choice. Left lower leg with a large amount of seepage. Dry dressing applied. Chair alarm is on.
[2019-02-28 04:35] VITALS: BP 94/71
--- NOTE | 2019-02-28 08:13 | EKG ---
[place] [address] [address] [place] [address] ELECTROCARDIOGRAM REPORT Name: URSZULA SALNIAS Room #: 456-P ADM IN M.R.#: [id number] ������������������ Admission: 02/27/19 ������������������ Attend Phys: Marvin Vasquez MD Discharge: ������������������ Date of : 34 Report #: [id number] ����������������������������������������������������������������� [id number] THIS REPORT FOR: //name// [facility] Test Date: 2019-02-27 Test Time: 16:12:35 Pat Name: URSZULA SALINAS Department: Room: 456 P Gender: M Balance Assembler: Maci GOYAL : 1935 Requested By: Liam Cabezas Order Number: [id number] MD: Liam Cabezas Measurements Intervals [place] Rate: 61 P: [place]: QRS: -47 QRSD: 130 T: 44 QT: 484 QTc: 488 Interpretive Statements Afib/flutter and nk-qrzkkqqsnuq-wiinw rhythm No further analysis attempted due to paced rhythm Compared to ECG 12/08/2017 15:09:18 No significant changes Electronically Signed On 02-28-2019 8:13:00 CDT by Liam Cabezas [email or web address] ��������������������������������������������� <ELECTRONICALLY SIGNED> ���������������������������������������� By: Liam Cabezas MD, [facility] ��������������������������������������������� 02/28/19 0813 1612 161 Liam Cabezas MD, [facility] /EPI
[2019-02-28 08:14] VITALS: BP 111/50
[2019-02-28 09:49] LABS: HEMATOCRIT 32.3 % (42.0-52.0); HEMOGLOBIN 10.6 gm/dL (14.0-18.0); MCHC 32.9 g/dL (28.0-37.0); RBC 3.55 mil/uL (4.50-6.00); WBC 5.9 thou/uL (4.0-11.0)
--- NOTE | 2019-02-28 09:50 | NUR ---
chart review. pt just seen by caridiology juice standardizer, rncm assisted juice standardizer with pt standing to use urinal " have to go bad"/[place]. report passed on to bedside nurse on pt use of urinal. cm visited with pt while sit up in recliner chair, chair alarm in place and in on position. pt preferrs going by angel or [place] but angel"/pt. angel is a & o x person , place and time. able to make his needs know. call light sitting on pt lap. he reported " live in apartment with , saira. use fww, not broken and function just fine. use shower stool. have grab bars all over. this is senior community called [facility] in [place]. manage own medication, check own blood sugar. not on any insulin. insurance is supposed to be getting me life alert, call system. independent when feeling ok. had fever and chills at home. chills at home for a while. mercedes hinton takes us to our appointments and takes us to run errands at store. use the electric scooters in stores, cant walk whole place. had fall 2 days ago coming out of religion . then hit my ankle on trash can in kitchen 2-3 weeks prior and had to have help getting it to stop bleeding. been to rehab at [facility] and if was needed would go back there"/angel. will cont following as needed for dc needs. cm visited with mercedes hinton [phone] via phone call " they live in completely independent [facility] in [place]. on services with josue. just keep me updated and if needs rehab been to [facility] before. thank you for calling"/daughter dcp pend recommendation
[2019-02-28 10:10] LABS: CALCIUM 9.4 mg/dL (8.5-10.1); CREATININE 1.4 mg/dL (0.7-1.3); MAGNESIUM 2.2 mg/dL (1.8-2.4); POTASSIUM 3.8 mmol/L (3.5-5.1)
--- NOTE | 2019-02-28 11:33 | HC ---
[facility] [place] [address] CONSULTATION Name: URSZULA SALINAS Room #: 456-P ADM IN M.R.#: [id number] Admission: 02/27/19 ������������������ Attend Phys: Marvin Vasquez MD Discharge: ������������������ Date of : 34 Report #: [id number] THIS REPORT FOR: //name// CC: Marvin Brandon DATE OF SERVICE: 02/27/2019 REASON FOR CONSULTATION: I was asked to evaluate concerning lower extremity cellulitis and wound infection. HISTORY OF PRESENT ILLNESS: An 83-year-old with underlying history of ischemic cardiomyopathy, lower extremity edema with nonhealing ulcerations, left greater than right. He was treated last week for community-acquired pneumonia. He was treated with Levaquin. Trial of diuresis, about 15 pounds was completed. He continues to be short of breath. Hospitalized now because of his lower extremity wounds and secondary cellulitis. No fever, chills or sweats. Still has a significant amount of pain, left greater than right around the wounds. No nausea, vomiting or diarrhea. Good urine output. REVIEW OF SYSTEMS: A 10-point review of systems was negative other than what was reported above. He denies any chest pain. ALLERGIES: PENICILLIN, CEPHALOSPORINS, PROPOXYPHENE, MORPHINE. MEDICATIONS: As noted on his MAR, which were reviewed. PAST MEDICAL HISTORY: Hypertension, diabetes, gastroesophageal reflux, cardiomyopathy, obstructive sleep apnea, coronary artery disease, non-STEMI with stenting, hyperlipidemia, arthritis, chronic kidney disease, atrial fibrillation, umbilical herniorrhaphy, appendectomy, hemorrhoidectomy, left knee surgery, sick sinus syndrome with defibrillator and pacemaker, cataract surgery, chronic low back pain, scoliosis. FAMILY HISTORY: Noncontributory. SOCIAL HISTORY: He has been living in assisted living situation, past smoker, no significant alcohol intake. PHYSICAL EXAMINATION: VITAL SIGNS: He is afebrile and hemodynamically stable. GENERAL: He was alert, cooperative and pleasant, in no acute distress. He was sitting up in his chair, eating his dinner. SKIN: With cellulitis of the lower extremities, associated with venous stasis disease bilaterally. Wounds were otherwise dressed to the lower legs. He had [facility] [address] [place] [address] CONSULTATION Name: URSZULA SALINAS Room #: 456-P [facility] IN M.R.#: [id number] Admission: 02/27/19 ������������������ Attend Phys: Marvin Vasquez MD Discharge: ������������������ Date of : 34 Report #: [id number] 3+ edema involving the legs. The edema actually was from the waist down. He has venous stasis disease involving his abdominal pannus. No palpable adenopathy. EYES: Without scleral icterus. MOUTH: Without mucositis. NECK: Supple, with no thyromegaly or mass. LUNGS: Clear. HEART: Regular without appreciable murmur, gallop or rub. ABDOMEN: Obese, soft, protuberant. No hepatosplenomegaly or mass. GENITOURINARY: External genitalia without lesion or mass. RECTAL: Not performed. NEUROLOGIC: Cranial nerves intact. Strength in his upper and lower extremities was normal. Sensation in his feet normal. Mood normal. LABORATORY DATA: Sodium 136, potassium 3.9, bicarbonate of 29, creatinine 1.3, bilirubin 1.1, ALT 24, alkaline phosphatase 142, albumin at 3. BNP 4451. Hemoglobin 10.2; WBC 6.2; platelet count 184,000; 75% neutrophils. Urinalysis unremarkable. TSH 4.3. Chest x-ray, no acute change. IMPRESSION: 1. Bilateral lower extremity venous stasis wounds with secondary infection and cellulitis. 2. BETA-LACTAM ALLERGY. 3. Congestive heart failure with predominantly right-sided changes. 4. Recent pneumonia. 5. Atrial fibrillation. 6. Diabetes. RECOMMENDATIONS: We will continue with IV antibiotic therapy, edema control, leg elevation, wound care, followup chest x-ray, culture wounds and serial laboratory studies including CBC and chemistry. ��������������������������������������������� <ELECTRONICALLY SIGNED> ���������������������������������������� By: Randy Torrez MD ��������������������������������������������� 02/28/19 1133 1811 0710 Randy Torrez MD /nt
--- NOTE | 2019-02-28 11:37 | NUR ---
WOUND CONSULT; ROUNDING WITH JONATHAN SR. [employer]IX SYSTEM ADMINISTRATOR TODAY. LOWER EXT WOUNDS BILATERALLY MODERATE LYMPHEDEMA NOTED WITH WEEPING DIFFUSE BILATERALLY. DRAINAGE IS YELLOW/NEON COLORED. RECOMMENDATION; APPLY AQUACEL AG, ABD, KERLIX LOOSELY DAILY/PRN DISCUSSED WITH RN
--- NOTE | 2019-02-28 12:04 | 2DMMODE ---
[facility] [address] [place] [address] 2 D/M-MODE ECHOCARDIOGRAM Name: URSZULA SALINAS Room #: 456-P [facility] IN ..#: [id number] ������������� Admission: 02/27/19 ������������� Attend Phys: Marvin Vasquez MD Discharge: ��� ������������� ��� Date of : 33 Date of Service: 02/28/19 1204 �� Report #: [id number] �������� ��������������������������������������������[id number] THIS REPORT FOR: //name// APPROVED REPORT Study performed: 02/28/2019 11:26:45 EXAM: Comprehensive 2D, Doppler, and color-flow Echocardiogram Patient Location: Echo lab Room #: 456 Status: routine BSA: 1.92 HR: 63 bpm BP: 94/71 mmHg Rhythm: Pacemaker Other Information Study Quality: Adequate/patient uncomfortable, did not tolerate well. Not all measurements taken. Indications Congestive Heart Failure Cardiomyopathy Hx: Pacer/defib, CAD, stent, Afib, HTN. 2D Dimensions RVDd: 43.18 mm IVSd: 13.63 (7-11mm) LVOT Diam: 21.40 (18-24mm) LVDd: 45.44 mm PWd: 9.14 (7-11mm) Ascending Ao: 36.37 (22-36mm) LVDs: 33.67 (25-40mm) Aortic Root: 38.63 mm Volumes Left Atrial Volume (Systole) Single Plane 4CH: 83.52 mL Single Plane 2CH: 73.39 mL LA ESV Index: 45.00 mL/m2 Aortic Valve AoV Peak Mauro.: 1.18 m/s AO Peak Gr.: 5.59 mmHg LVOT Max P.60 mmHg LVOT Max V: 0.81 m/s GARETH Vmax: 2.45 cm2 Mitral Valve [facility] [address] [place] [address] 2 D/M-MODE ECHOCARDIOGRAM Name: URSZULA SALINAS Room #: 456-P ADM IN ..#: [id number] ������������� Admission: 02/27/19 ������������� Attend Phys: Marvin Vasquez MD Discharge: ��� ������������� ��� Date of : 33 Date of Service: 02/28/19 1204 �� Report #: [id number] �������� ��������������������������������������������[id number] MV Decel. Time: 145.72 ms MV E Max Mauro.: 0.71 m/s Pulmonary Valve PV Peak Mauro.: 0.49 m/s PV Peak Gr.: 0.96 mmHg Tricuspid Valve TR Peak Mauro.: 4.15 m/s RAP Estimate: 15.00 mmHg TR Peak Gr.: 68.86 mmHg PA Pressure: 84.00 mmHg Left Ventricle The left ventricle is normal size. Mild basal septal hypertrophy is present. Left ventricular systolic function is mild to moderately decreased. LVEF is 40-45%. This study is not technically sufficient to allow evaluation of the LV diastolic function. Right Ventricle Right ventricle is dilated. Right ventricle is hypokinetic. Atria Left atrium is moderately dilated. Right atrium is moderately dilated. Aortic Valve The Aortic valve is moderately sclerotic. Trace to mild aortic regurgitation. There is no aortic valvular stenosis. Mitral Valve The mitral valve is normal in structure. Mild mitral annular calcification. Mild mitral regurgitation. No evidence of mitral valve stenosis. Tricuspid Valve The tricuspid valve is normal in structure. there is shadowing obstructing some of the view Moderate to severe tricuspid regurgitation. Severe pulmonary hypertension with an estimated PAP of 80-85mmHg. Pulmonic Valve The pulmonary valve is normal in structure. Trace pulmonic regurgitation. Great Vessels Aortic root is mildly dilated. The ascending aorta is normal in size. [facility] [address] [place] [address] 2 D/M-MODE [facility]ARDIOGRAM [facility] Room #: 456-P [facility] IN M.R.#: [id number] ������������� Admission: 02/27/19 ������������� Attend Phys: Marvin Vasquez MD Discharge: ��� ������������� ��� Date of : 33 Date of Service: 02/28/19 1204 �� Report #: [id number] �������� ��������������������������������������������[id number] IVC is dilated and collapses <50% with inspiration. Pericardium There is no pericardial effusion. <Conclusion> The left ventricle is normal size. LVEF is 40-45%. Right ventricle is dilated. Right ventricle is hypokinetic. Left atrium is moderately dilated. Right atrium is moderately dilated. The Aortic valve is moderately sclerotic. Trace to mild aortic regurgitation. The mitral valve is normal in structure. Mild mitral annular calcification. Mild mitral regurgitation. The tricuspid valve is normal in structure. there is shadowing obstructing some of the view Moderate to severe tricuspid regurgitation. Severe pulmonary hypertension with an estimated PAP of 80-85mmHg. The pulmonary valve is normal in structure. Trace pulmonic regurgitation. Aortic root is mildly dilated. There is no pericardial effusion. ��������������������������������������������� <ELECTRONICALLY SIGNED> ���������������������������������������� By: Jossue Rose MD ��������������������������������������������� 02/28/19 1204 03 03 Jossue Rose MD /INF
[2019-02-28 15:12] VITALS: BP 101/46
--- NOTE | 2019-02-28 19:26 | NUR ---
AAOX3 OCCASIONALLY FORGETFUL. UP IN CHAIR ALL DAY. UP TO BR WITH SLOW STEADY GAIT USING WALKER. GOOD APPETITE. LOWER EXTREMITIES WITH GAUZE DRESSINGS CHANGED PER WOUND CARE NURSE. AT BEDSIDE MOST OF SHIFT.
[2019-02-28 20:20] VITALS: BP 84/63
[2019-03-01 04:15] VITALS: BP 94/52
--- NOTE | 2019-03-01 04:51 | NUR ---
Pt. rested quietly at intervals during the night when checked on during frequent rounds. He has been up in the recliner chair all night per his request. Pt. c/o some pain in his neck and shoulder. Analgesic cream applied (see emar) with some relief noted. Chair alarm is on.
[2019-03-01 05:40] LABS: HEMOGLOBIN 10.8 gm/dL (14.0-18.0); MCH 30.1 pg (26.0-34.0); MCHC 32.9 g/dL (28.0-37.0); MCV 91.4 fL (80.0-100.0); RBC 3.61 mil/uL (4.50-6.00); RDW 19.4 % (10.5-14.5); WBC 6.6 thou/uL (4.0-11.0)
[2019-03-01 05:49] LABS: CALCIUM 9.2 mg/dL (8.5-10.1); MAGNESIUM 2.2 mg/dL (1.8-2.4); POTASSIUM 3.8 mmol/L (3.5-5.1)
[2019-03-01 08:47] VITALS: BP 113/66
--- NOTE | 2019-03-01 10:54 | NUR ---
WOUND CARE FOLLOW UP; ROUNDING TODAY WITH JONATHAN [employer] ASSISTANT AND DONAVAN LOUISE RN. WOUNDS ARE DRAMATICALLY BETTER TODAY AND RESPONDING WELL TO CURRENT WOUND CARE PLAN. DECREASE EDEMA WELL. RECOMMENDATIONS; CONTINUE POC DISCUSSED WITH RN
--- NOTE | 2019-03-01 12:21 | NUR ---
TOWARDS POC PT A/O X4, FORGETFULL, VSS, AFEBRILE, DENIES PAIN. WOUND CARE AND DRESSING DONE. PT AWAITING FOR SURGERY AT 1300. WILL CONTINUE TO MONITOR.
[2019-03-01 16:08] VITALS: BP 124/59
[2019-03-01 16:10] VITALS: BP 123/54
--- NOTE | 2019-03-01 18:08 | NUR ---
PATIENT IN ICU MS/TELE OVERFLOW PATIENT FROM 4W. ALERT AND ORIENTED AND DENIES PAIN. VITALS STABLE. UP IN THE CHAIR AND STATES HE DOESN'T LIKE TO GET LAY IN THE BED. DAUGHTER AT THE BEDSIDE. TOLERATING DIET AND ABLE TO VOID IN URINAL WITH STANDBY ASSISTANCE. DRESSINGS AND RODERICK WRAP NOTED BLE. PER RN REPORT DRESSINGS WERE CHANGED EARLIER TODAY. DAUGHTER LOOKING FOR BELONGINGS AND HOME MEDS. AFTER CALLING PHARMACY AND INVESTIGATING, FOUND OUT THAT PATIENT'S TOOK ALL BELONGINGS AND MEDICATIONS HOME YESTERDAY AND THE ONLY BELONGINGS LEFT BEHIND WAS SANDALS. THESE HAVE BEEN LOCATED IN OLD ROOM AND STAFF WILL BRING OVER TO NEW ROOM. WILL CONTINUE TO MONITOR.
[2019-03-01 20:00] VITALS: BP 102/39
[2019-03-02 05:51] LABS: CALCIUM 9.2 mg/dL (8.5-10.1); CREATININE 1.2 mg/dL (0.7-1.3); POTASSIUM 4.1 mmol/L (3.5-5.1)
--- NOTE | 2019-03-02 06:09 | NUR ---
ASSUMED PATIENT CARE AT 1900. REVIEWED ORDERS, LABS, MEDICATIONS, AND CARE PLAN. PATIENT SITTING UP IN RECLINER WITH NO COMPLAINTS OF PAIN, OR NAUSEA/VOMITING. PATIENT AAOX3, V-PACED ON THE MONITOR, AFEBRILE, AND ON ROOM AIR. PATIENT AMBULATES WELL WITH MINIMAL ASSISTANCE. PATIENT REQUESTED TO SLEEP IN THE RECLINER AND WAS PLACED ON BIPAP FOR ALFRED. PATIENT NOTED TO HAVE RODERICK BANDAGES ON BLE'S THAT ARE CLEAN, DRY, AND INTACT. PATIENT PROGRESSING TOWARD GOAL.
[2019-03-02 08:18] VITALS: BP 93/49
--- NOTE | 2019-03-02 08:47 | HC ---
[facility] [place] [address] CONSULTATION Name: URSZULA SALINAS Room #: 245-P ADM IN M.R.#: [id number] Admission: 02/27/19 ������������������ Attend Phys: Marvin Vasquez MD Discharge: ������������������ Date of : 34 Report #: [id number] THIS REPORT FOR: //name// CC: Marvin Brandon DATE OF SERVICE: 02/28/2019 WOUND CARE CONSULTATION PERSONAL PHYSICIAN: None on staff. CHIEF COMPLAINT: Bilateral lower extremity weeping cellulitis. HISTORY OF PRESENT ILLNESS: This is an 83-year-old white male who I saw yesterday in clinic and admitted the patient to the hospital for bilateral lower extremity weeping cellulitis. The patient stated that he had had approximately 15-pound weight gain over the past 2 days and was complaining of significant edema in both lower extremities with significant amount of weeping. The patient states he has also had a low-grade fever, but denies actual chills. The patient does complain of shortness of breath. He denies chest pain. He also states that recently on a chest x-ray he was diagnosed with pneumonia. The patient has been taking antibiotics for that. The patient denies pain in his lower extremities, but has the weeping. The patient denies any other associated wounds except for the multiple weeping wounds on his bilateral lower extremities. PAST MEDICAL HISTORY: Significant for ischemic cardiomyopathy, atrial fibrillation, coronary artery disease with previous coronary artery stenting, hypertension, hyperlipidemia, congestive heart failure, venous insufficiency with chronic venous stasis ulcers. CURRENT MEDICATIONS: Multiple, I reviewed the patient's medication list. DRUG ALLERGIES: PENICILLIN, MORPHINE, AND PROPOXYPHENE. SOCIAL HISTORY: The patient does not smoke or drink alcohol. The patient lives in assisted living. FAMILY HISTORY: Not pertinent to current medical condition. REVIEW OF SYSTEMS: CONSTITUTIONAL: The patient has a low-grade fever over the past couple of days, but no chills. NEUROLOGIC: Overall generalized weakness, but no isolated weakness in arms or [facility] [address] [place] [address] CONSULTATION Name: URSZULA SALINAS Room #: 245-P [facility] IN ..#: [id number] Admission: 02/27/19 ������������������ Attend Phys: Marvin Vasquez MD Discharge: ������������������ Date of : 34 Report #: [id number] legs. EYES: No complaints. ENT: No complaints. CARDIAC: The patient complains of bilateral lower extremity weeping edema. No chest pain or palpitations. RESPIRATORY: The patient has complaints of dyspnea on exertion and orthopnea with shortness of breath and recently diagnosed with pneumonia with associated nonproductive cough, but no wheezing. GASTROINTESTINAL: The patient denies nausea, vomiting, abdominal pain. GENITOURINARY: The patient denies urgency or frequency. MUSCULOSKELETAL: No complaints. SKIN: There is weeping superficial venous stasis ulcers on bilateral lower extremities. PHYSICAL EXAMINATION: VITAL SIGNS: Temperature 36.2, pulse 59, respirations 17, BP 113/66. GENERAL: This is an alert and oriented x3, pleasant white male who appears much better condition than he did 24 hours ago. HEENT: Normocephalic, atraumatic. Mucous membranes are moist. Pupils are round. Sclerae white. NECK: Positive for JVD, otherwise supple, nontender. BACK: Nontender. LUNGS: Diminished breath sounds heard throughout. CHEST: Nontender. HEART: Irregularly irregular with 2/6 systolic ejection murmur. ABDOMEN: Obese, soft, nontender. EXTREMITIES: The patient has 3-4+ edema bilateral lower extremities with multiple superficial venous stasis ulcers, which are clean, granulating, but having profuse amounts of serous drainage without signs of purulence. There is increased erythema and warmth to both lower extremities and some tenderness when palpated. Distal pulses are intact. Bilateral heels, foot and toes are all without ulcerations. NEUROLOGIC: Cranial nerves 2-12 grossly intact. Motor and sensory grossly intact. LABORATORY DATA: White count 6.2, hemoglobin 10.2, albumin 3.0. Chest x-ray shows congestive heart failure, cardiomegaly. IMPRESSION: 1. Multiple bilateral venous stasis ulcers, which are superficial, limited to breakdown of skin with weeping. 2. Venous insufficiency with edema. 3. Bilateral lower extremity cellulitis secondary to #1. 4. Congestive heart failure. 5. Protein-calorie malnutrition -- mild. Albumin 3.0. 6. Generalized debility. [address] [address] CONSULTATION Name: URSZULA SALINAS Room #: 245-P [facility] IN M.R.#: [id number] Admission: 02/27/19 ������������������ Attend Phys: Marvin Vasquez MD Discharge: ������������������ Date of : 34 Report #: [id number] 7. History of atrial fibrillation. PLAN: Due to the patient's history of severe ischemic cardiomyopathy, we will hold off on aggressive compression in bilateral lower extremities at this time pending further diuresis of this patient. We will use Silvadene to the bilateral lower extremities, cover this with Xeroform, ABD and Kerlix for mild compression. Let patient elevate his legs as much as possible. The patient has already been started on IV Lasix for diuresis. The patient was seen by Infectious Disease and started on IV antibiotics. We will continue to maximize the patient's oral protein supplementation for healing. We will consult Physical and Occupational therapy for strengthening. We will continue all other current medications and continue to follow the patient while he is here. I appreciate the ability to consult. ��������������������������������������������� <ELECTRONICALLY SIGNED> ���������������������������������������� By: Dusty Brandon MD ��������������������������������������������� 03/02/19 0847 1201 0040 Dusty Brandon MD /hayley
--- NOTE | 2019-03-02 12:53 | NUR ---
WOUND CARE FOLLOW UP; ROUNDING TODAY WITH DR NOLAN BRYAN. BILATERAL LE SWELLING HAS DECREASED DRAMATICALLY. WE WILL CONTINUE TO FOLLOW THIS PATIENT. RECOMMENDATION; NO CHANGES AT THIS TIME DISCUSSED WITH RN
--- NOTE | 2019-03-02 14:51 | NUR ---
ASSUMED CARE OF PT AT 0700 THIS SHIFT. PT HAS BEEN COOPERATIVE, HAS DENIED ANY PAIN THIS SHIFT. PT HAS WORKED WITH PHYSICAL THERAPY THIS SHIFT, WAS ABLE TO WALK TO NEIGHBORING POD. ASSESSMENTS ARE DOCUMENTED, PT IS CURRENTLY RESTING COMFORTABLY IN ROOM. PT HAS HAD VISITORS THIS SHIFT, EDUCATION WAS PROVIDED. PLAN OF CARE IS TO CONTINUE TO MONITOR PT CLOSELY AT THIS TIME.
--- NOTE | 2019-03-02 15:39 | NUR ---
WALKED 150 FT WITH FWW AND THERAPIST TODAY. P.T. RECOMMENDATION IS HME WITH RESUMPTION OF HOME HEALTH. PT CURRENT WITH [facility] AND UPDATED DC PLAN TO DR. PETERSON TODAY.
[2019-03-02 15:43] VITALS: BP 93/49
[2019-03-02 20:58] VITALS: BP 105/55
--- NOTE | 2019-03-03 05:34 | NUR ---
ASSUMED PATIENT CARE AT 1900. PATIENT AAOX3 AND ON 2 L NC. PATIENT RESTED WELL DURING THE NIGHT AND HAD NO COMPLAINTS OF ANY PAIN OR NAUSEA. VS REMAINED STABLE AND HOURLY ROUNDING COMPLETED. PATIENT PROGRESSING TOWARDS GOAL.
[2019-03-03 17:00] VITALS: BP 106/50
--- NOTE | 2019-03-03 18:06 | NUR ---
ASSUMED CARE AT SHIFT CHANGE, ALERT AND ORIENTED X3-4 FORGETFUL. REMAINS ON O2 AT 2L NC, V PACED ON THE MONITOR AND VSS. BG BELOW 200. REFUSED WOUND DRESSING CHANGE, AND HE STATED THAT HIS TIRED AND WNATS TO REST. ASSESSMENT DOCUMENTED. AFEBRILE AND WILL CONTINUE WITH POC.
[2019-03-03 20:34] VITALS: BP 101/46
[2019-03-04] VITALS (7 sets, daily range): BP systolic 105–116; BP diastolic 51–65
[2019-03-04 05:48] LABS: CALCIUM 9.1 mg/dL (8.5-10.1); CREATININE 1.1 mg/dL (0.7-1.3)
--- NOTE | 2019-03-04 07:32 | NUR ---
PT ALERT, ORIENTED PLEASANT WITH CARES, RESTING IN RECLINER, WITH LEGS ELEVATED, PT PREFERS TO SLEEP IN RECLINER. NO ACUTE CHANGES. DRESSING CHANGES TO BILAT LEGS DONE THIS AM, PT TOLERATED WELL.
--- NOTE | 2019-03-04 18:10 | NUR ---
ASSUMED CARE AT SHIFT CHANGE, ALERT AND ORIENTED X4. DENES ANY DISOCMFORT. PATIENT IN THE CHAIR ALL DAY, SOB WITH ACTIVITIES AND UP ADLIB WITH STAND BY ASSISST. VSS AND ASSESSMENT CHARTED. LASIX GIVEN SCHEDULED AND PATIENT VOIDED ADEQUATE AMOUNT OF URINE. BLE +2 EDEMA AND WOUND CARE COMPLETED. PROGRESSING TOWARD GOALS. REPORT GIVEN TO AMANDA SOLITARIO AND PATIENT TRANFERED TO CCU.
[2019-03-05 01:00] VITALS: BP 109/48
[2019-03-05 04:16] LABS: CALCIUM 9.1 mg/dL (8.5-10.1); MAGNESIUM 2.2 mg/dL (1.8-2.4); POTASSIUM 4.1 mmol/L (3.5-5.1)
[2019-03-05 04:30] VITALS: BP 98/52
--- NOTE | 2019-03-05 04:54 | NUR ---
PT EDUCATED AND SIGNED TELE INTERFERENCE POLICY, REMAINS VPACED PER MONITOR, NO C/O PAIN, SLEEPING IN RECLINER, LE ELEVATED, VSS, VOIDING PER URINAL, PLACED IN ISOLATION EARLIER IN THE EVENING AFTER WOUND CULTURES CAME BACK POSITIVE FOR MRSA AND INFECTIOUS DISEASE NOTIFIED AND ROUUNDED ON PT, WILL CON'T TO MONITOR PER PPOC.
[2019-03-05 08:00] VITALS: BP 114/53
[2019-03-05 12:20] VITALS: BP 98/40
--- NOTE | 2019-03-05 12:21 | NUR ---
Assess due to length of stay. Pt with venous stasis ulcers, wound care has indicated improved significanty. Tolerates meals, wts variable 170-180s with need for diuresis. BG controlled. Low nutrition risk
--- NOTE | 2019-03-05 15:13 | NUR ---
spoke with dtr Pallavi. Therapy recommends home with HH care. Dtr reports she was told by anesthesia that when a patient is in hospital for 3 days they usu go to rehab before home. Questioned dtr name of phys who told her this information and she could not recall. Discussed dc planning process and therapy recommendation of home with HH care. Insurance likely will not authorize post acute care if patient safe to return home. Dtr reports concern with new MRSA diagnosis. She questions if her mom can cont to assist with wound care. RN reports she is requesting tool crib clerk to sp with dtr as she has questions regarding their input into care. Teative plan for home with HH at id. Updated [facility].
[2019-03-05 16:38] VITALS: BP 107/51
--- NOTE | 2019-03-05 18:17 | NUR ---
ASSUMED CARE AT SHIFT CHANGE, PATUIENT ALERT AND ORIENTED X4 BUT FORGETFUL. VPACED ON THE MONITOR, DENIES ANY CP OR DISCOMFORT. DRESSING CHANGED BY WOUND CARE TEAM. VSS AND PROGRESSING TOWARD GOALS. AND WILL CONTINUE WITH POC.
[2019-03-05 20:00] VITALS: BP 96/47
[2019-03-06] VITALS (7 sets, daily range): BP systolic 93–106; BP diastolic 47–59
--- NOTE | 2019-03-06 03:32 | NUR ---
ASSUMED PT CARE AT 1900. PT A/OX4, FORGETFUL, VITAL SIGNS STABLE, ASSESSMENT CHARTED. PT REQUESTED TO SLEEP IN RECLINER. NO COMPLAINTS OF PAIN/CHEST PAIN. VPACED ON THE MONITOR. PT REFUSED CPAP AT HS. 2L O2 HELPED KEEP O2 SAT ABOVE 93%. PT RESTED WELL THROUGH THE NIGHT. CONTACT PRECAUTIONS MAINTAINED. PROGRESSING TOWARD PLAN OF CARE. WILL CONTINUE TO MONITOR CLOSELY.
[2019-03-06 04:10] LABS: CALCIUM 9.4 mg/dL (8.5-10.1); CREATININE 1.2 mg/dL (0.7-1.3); POTASSIUM 4.5 mmol/L (3.5-5.1)
[2019-03-06] MEDS ORDERED: MIRALAX17 GM PO (13:44)
[2019-03-06] MEDS ORDERED: DEMADEX20 MG PO (13:44)
[2019-03-06] MEDS ORDERED: POTASSIUM20 PO (13:44)
[2019-03-06] MEDS ORDERED: MUCINEX600 MG PO (13:44)
[2019-03-06] MEDS ORDERED: DOXYCYCLINE 10100 MG PO (13:44)
[2019-03-06] MEDS ORDERED: COREG25 MG PO (13:44)
--- NOTE | 2019-03-06 14:33 | NUR ---
PT DISCHARGING TODAY TO HOME WITH [facility] HH NOTIFIED MARGE OF DC ORDERS ARE FINALIZED AND WILL NOTIFY PT TIME OF VISITS.
--- NOTE | 2019-03-06 14:41 | NUR ---
Patient to dc home with HH from [facility] as he was current with their services. Patient reports his dtr plans to transport him home once they let him know he is ready for dc. He has home CPAP at home and no oxygen. Patient weaned from oxygen on room air in room. Patient reports he has a walker at home
--- NOTE | 2019-03-06 15:15 | NUR ---
WOUND CARE FOLLOW UP; ROUNDING WITH DR PAUL RODRIGUEZ AND DONAVAN LOUISE BSN RN. DRESSING WERE CLEAN DRY AND INTACT. RECOMMENDATION; NO CHANGES DISCUSSED WITH RN
== END 2019-03-06 18:29 | disposition home health service (06) | DRG 602 ==
LOC: HYPER 06:56 → 4W 11:09 → ICU 11:09 → HYPER 12:10 → 4W 12:20 → ICU 03-01 15:30 → 2N 03-04 18:32 → ENTRNSPT 03-06 18:03 → 2N 03-06 18:29
PROVIDERS: Internal Medicine; Internal Medicine Cardiovascular Disease; Nurse Practitioner; ADMIT Hospitalist
PROC: 5A09357 Assistance with Respiratory Ventilation, Less than 24 Consecutive Hours, Continuous Positive Airway Pressure (ICD-10-PCS; principal; 2019-03-01)
PROC: 5A09357 Assistance with Respiratory Ventilation, Less than 24 Consecutive Hours, Continuous Positive Airway Pressure (ICD-10-PCS; 2019-03-03)
PROC: 5A09357 Assistance with Respiratory Ventilation, Less than 24 Consecutive Hours, Continuous Positive Airway Pressure (ICD-10-PCS; 2019-03-05)
DX: L03.116 Cellulitis of left lower limb (principal); I50.23 Acute on chronic systolic (congestive) heart failure; I13.0 Hypertensive heart and chronic kidney disease with heart failure and stage 1 through stage 4 chronic kidney disease, or unspecified chronic kidney disease; L97.929 Non-pressure chronic ulcer of unspecified part of left lower leg with unspecified severity; L97.919 Non-pressure chronic ulcer of unspecified part of right lower leg with unspecified severity; N17.9 Acute kidney failure, unspecified; E44.0 Moderate protein-calorie malnutrition; E11.65 Type 2 diabetes mellitus with hyperglycemia; E66.9 Obesity, unspecified; D63.8 Anemia in other chronic diseases classified elsewhere; I89.0 Lymphedema, not elsewhere classified; I25.5 Ischemic cardiomyopathy; L03.115 Cellulitis of right lower limb; I87.2 Venous insufficiency (chronic) (peripheral); K21.9 Gastro-esophageal reflux disease without esophagitis; N18.2 Chronic kidney disease, stage 2 (mild); I87.8 Other specified disorders of veins; G47.33 Obstructive sleep apnea (adult) (pediatric); E78.5 Hyperlipidemia, unspecified; M41.9 Scoliosis, unspecified; G89.29 Other chronic pain; M54.5 Low back pain; M19.90 Unspecified osteoarthritis, unspecified site; E11.22 Type 2 diabetes mellitus with diabetic chronic kidney disease; I48.91 Unspecified atrial fibrillation; I49.5 Sick sinus syndrome; I25.10 Atherosclerotic heart disease of native coronary artery without angina pectoris; Z88.0 Allergy status to penicillin; Z88.1 Allergy status to other antibiotic agents; Z88.5 Allergy status to narcotic agent; Z88.8 Allergy status to other drugs, medicaments and biological substances; I25.2 Old myocardial infarction; Z90.49 Acquired absence of other specified parts of digestive tract; Z95.810 Presence of automatic (implantable) cardiac defibrillator; Z98.49 Cataract extraction status, unspecified eye; Z68.30 Body mass index [BMI] 30.0-30.9, adult; Z95.5 Presence of coronary angioplasty implant and graft
CPT/HCPCS: 10045; 10047; 10078; 10081

== ENCOUNTER 2019-03-21 06:38 | Inpatient (IN) | payer OTHER ==
[2019-03-21] VITALS (49 sets, daily range): BP systolic 87–127; BP diastolic 50–68
[~2019-03-21] VITALS: Ht 167.6 cm; Wt 73.8 kg
--- NOTE | ~2019-03-21 | P ---
[facility] [place] [address] PROCEDURE REPORT Name: URSZULA SALINAS Room #: 244-P [facility] IN M.R.#: [id number] Admission: 03/21/19 ������������������ Attend Phys: Brock Ayon MD Discharge: ������������������ Date of : 34 Report #: [id number] THIS REPORT FOR: //name// CC: Brock Brandon PREOPERATIVE DIAGNOSIS: Implantable cardioverter-defibrillator at elective replacement interval. POSTOPERATIVE DIAGNOSIS: Implantable cardioverter-defibrillator at elective replacement interval. HISTORY: The patient is an 83-year-old with history of cardiomyopathy, status post prior Bi-V ICD implantation and status post atrioventricular node ablation, who is here for generator exchange. ANESTHESIA: The patient underwent MAC anesthesia. DESCRIPTION OF PROCEDURE: The patient and his family underwent informed consent. We discussed the details of the procedure, which include but not limited to bleeding, infection, need for possible lead revisions. They understood these risks and willing to proceed. As such, the patient was brought to the EP laboratory in a fasting and sedated state and prepped and draped in a sterile fashion. I injected lidocaine at the prior incision site and then an incision was made and the pocket was entered. As I was opening the pocket, Anesthesia was noticing the patient was hypotensive, which they started to treat; however, this was not responding adequately. Pulse was not felt and the patient was noted to be in pulseless electrical activity. Therefore, I initiated chest compressions and we gave the patient epinephrine. A pulse was regained and the patient was stabilized. As such, the generator exchange was aborted and I did reclose the pocket with 2-0 for the deep layer and 3-0 for the middle layer. Surgical glue was placed out of the skin layer and a pressure dressing was placed over the incision site. As such, the patient was not stable enough for ICD generator exchange at this time. I did discuss the events with the family and the patient will be going to the ICU on the ventilator where we will monitor his clinical status and discuss further options. There was no significant bleeding secondary to the procedure. ��������������������������������������������� ���������������������������������������� By: ��������������������������������������������� 1011 0428 Oswald Ayon MD /nt
[~2019-03-21 06:38] MED LIST changes: +DOXYCYCLINE 10100 MG PO; +MIRALAX17 GM PO; +MUCINEX600 MG PO; +POTASSIUM20 PO
[2019-03-21 07:12] LABS: BASOPHILS 0.6 % (0.0-2.0); EOSINOPHILS 1.9 % (0.0-3.0); HEMATOCRIT 33.5 % (42.0-52.0); HEMOGLOBIN 11.1 gm/dL (14.0-18.0); LYMPHOCYTES 10.4 % (24.0-44.0); MCHC 33.2 g/dL (28.0-37.0); MCV 90.5 fL (80.0-100.0); MONOCYTES 9.6 % (1.0-8.0); PLATELET COUNT 146 thou/uL (150-400); POLYS 77.5 % (36.0-66.0); RDW 17.6 % (10.5-14.5); WBC 6.5 thou/uL (4.0-11.0)
[2019-03-21 07:26] LABS: APTT 28.9 Seconds (24.5-32.8); INR 1.2; PROTIME 12.7 Seconds (9.3-11.4)
[2019-03-21] MEDS ORDERED: COREG25 MG PO (07:40)
[2019-03-21] MEDS ORDERED: DEMADEX20 MG PO (07:45)
[2019-03-21] MEDS ORDERED: SINGULAIR 10 MG10 M1 PO (07:46)
[2019-03-21] MEDS ORDERED: HYDROXYZINE HCL25 M1 PO (07:46)
[2019-03-21] MEDS ORDERED: FLOMAX0.4 MG PO (07:48)
[2019-03-21 07:53] LABS: ALBUMIN 3.3 g/dL (3.4-5.0); TOTAL BILIRUBIN 0.8 mg/dL (<0.1-1.0); TOTAL PROTEIN 7.4 g/dL (6.4-8.2)
[2019-03-21 08:01] LABS: CALCIUM 9.4 mg/dL (8.5-10.1); POTASSIUM 4.2 mmol/L (3.5-5.1)
[2019-03-21 10:52] LABS: CALCIUM 9.6 mg/dL (8.5-10.1); CREATININE 1.1 mg/dL (0.7-1.3); POTASSIUM 4.3 mmol/L (3.5-5.1)
--- NOTE | 2019-03-21 11:12 | 2DMMODE ---
[facility] [place] [address] 2 D/M-MODE ECHOCARDIOGRAM Name: URSZULA SALINAS Room #: 244-P ADM IN M.R.#: [id number] ������������� Admission: 03/21/19 ������������� Attend Phys: Brock Ayon Discharge: ��� ������������� ��� Date of : 33 Date of Service: 03/21/19 1112 �� Report #: [id number] �������� ��������������������������������������������[id number] THIS REPORT FOR: //name// APPROVED REPORT Study performed: 03/21/2019 10:31:51 EXAM: Limited 2D, Doppler, and color-flow Echocardiogram Patient Location: ICU Room #: 244 Status: routine BSA: 1.84 HR: 62 bpm BP: 115/68 mmHg Rhythm: Pacemaker Other Information Study Quality: Adequate Indications Limited echo for cardiomyopathy post Code in EP lab. Afib. Hx: ISCM, stent, Pacer/defib, HTN, HLP, CHF. Tricuspid Valve TR Peak Mauro.: 3.76 m/s RAP Estimate: 15.00 mmHg TR Peak Gr.: 56.68 mmHg PA Pressure: 72.00 mmHg Left Ventricle The left ventricle is normal size. Left ventricular systolic function is mild to moderately decreased. LVEF is 40-45%. Right Ventricle Right ventricle is dilated. Right ventricle is hypokinetic. Pacemaker lead is present in the right ventricle. Atria Left atrium is dilated. Right atrium is dilated. Aortic Valve The Aortic valve is sclerotic. Trace to mild aortic regurgitation. There is no aortic valvular stenosis. Mitral Valve Mitral valve leaflets are mildly thickened. Mild mitral annular calcification. Mild to moderate mitral regurgitation. [facility] [address] [place] [address] 2 D/M-MODE ECHOCARDIOGRAM Name: URSZULA SALINAS Room #: 244-P ADM IN M.R.#: [id number] ������������� Admission: 03/21/19 ������������� Attend Phys: Brock Ayon Discharge: ��� ������������� ��� Date of : 34 Date of Service: 03/21/19 1112 �� Report #: [id number] �������� ��������������������������������������������[id number] Tricuspid Valve The tricuspid valve is normal in structure. Moderate tricuspid regurgitation. Estimated PAP is 70mmHg. Great Vessels IVC is dilated and collapses <50% with inspiration. Pericardium There is no pericardial effusion. <Conclusion> The left ventricle is normal size. LVEF is 40-45%. Right ventricle is dilated. Right ventricle is hypokinetic. Pacemaker lead is present in the right ventricle. Left atrium is dilated. Right atrium is dilated. The Aortic valve is sclerotic. Trace to mild aortic regurgitation. Mitral valve leaflets are mildly thickened. Mild mitral annular calcification. Mild to moderate mitral regurgitation. There is no pericardial effusion. ��������������������������������������������� <ELECTRONICALLY SIGNED> ���������������������������������������� By: Jossue Rose MD ��������������������������������������������� 03/21/19 1112 11 1112 Jossue Rose MD /INF
[2019-03-21 11:15] LABS: BE(vivo) -1.3 mmol/L (-2 to +3); HCO3 24.5 mmol/L (22.0-26.0); PCO2 45.8 mmHg (35.0-45.0); PO2 146.7 mmHg (80.0-100.0); pH 7.346 (7.360-7.450); sO2 98.8 % (92.0-98.0)
--- NOTE | 2019-03-21 14:59 | NUR ---
WOUND CONSULT; DR PAUL RODRIGUEZ AND DONAVAN LOUISE SPARK PLUG ASSEMBLER SAW THIS PATIENT TODAY. THE ONDITION OF THE LE'S IS IMPROVING WITH AMMONIA LACTATE LOTION AND TUBI DICE TABLE OPERATOR. CONTINUE CURRENT ORDERS. DISCUSSED WITH RN
--- NOTE | 2019-03-21 17:13 | NUR ---
PT ARRIVED 0950 WITH EP STAFF- INTUBATED, NO SEDATION, CALM, RESPONSIVE TO PAIN, NO EYE OPENING RESPONSE, VITAL SIGNS STABLE, ADMITTING CALLED FOR ORDERS, ALL CONSULTS CALLED, PULMONARY SEDATION/VENT ORDERS RECEIVED, FAMILY UPDATED ON STATUS, KERI WHOM IS DAUGHTER AND DPOA REQUEST IN THE EVENT OF AND EMERGENCY SHE WISHES TO BE THE ONLY ONE CONTACTED, THEN SHE WILL CALL PT TO INFORM OF SITUATION. WILL MONITOR CLOSELY, ALL BELONGINGS DOCUMENTED.
--- NOTE | 2019-03-21 19:44 | NUR ---
PT BELONGINGS, PANTS, SHIRT, CPAP, SLIPPERS AND GLASSES LEFT IN ROOM AT ADMIT.
[2019-03-22] VITALS (39 sets, daily range): BP systolic 112–151; BP diastolic 54–76
[2019-03-22 05:41] LABS: HEMATOCRIT 33.5 % (42.0-52.0); HEMOGLOBIN 11.2 gm/dL (14.0-18.0); MCH 30.3 pg (26.0-34.0); MCHC 33.6 g/dL (28.0-37.0); MCV 90.2 fL (80.0-100.0); RBC 3.71 mil/uL (4.50-6.00); WBC 9.9 thou/uL (4.0-11.0)
[2019-03-22 05:53] LABS: CALCIUM 9.2 mg/dL (8.5-10.1); POTASSIUM 3.9 mmol/L (3.5-5.1)
--- NOTE | 2019-03-22 06:00 | NUR ---
REMAINS INTUBATED AND LIGHTLY SEDATED WITH PROPOFOL GTT AT 10 MCG FOLLOWS NO COMMANDS. ELI. 100 % V PACED. REMAINS A DNR. WILL CONT TO MONITOR
--- NOTE | 2019-03-22 09:13 | EKG ---
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 Assistant: Alaina CORTES : 1935 Requested By: Bernardino Hi Order Number: [id number] MD: Liam Cabezas Measurements Intervals [place] Rate: 60 P: 0 VA: 48 QRS: -84 QRSD: 119 T: -5 QT: 489 QTc: 489 Interpretive Statements Ventricular-paced rhythm No further analysis attempted due to paced rhythm Compared to ECG 02/27/2019 16:12:35 no significant change was found Electronically Signed On 03-22-2019 9:12:49 CDT by Liam Cabezas [email or web address] ��������������������������������������������� <ELECTRONICALLY SIGNED> ���������������������������������������� By: Liam Cabezas MD, [facility] ��������������������������������������������� 03/22/19 0912 1115 1115 Liam Cabezas MD, [facility] /EPI
[2019-03-22 10:38] LABS: BE(vivo) -0.1 mmol/L (-2 to +3); HCO3 23.7 mmol/L (22.0-26.0); PO2 124.3 mmHg (80.0-100.0); pH 7.437 (7.360-7.450); sO2 98.6 % (92.0-98.0)
--- NOTE | 2019-03-22 10:49 | NUR ---
CM ASSESSMENT: CASE OPENED FOR DC PLANNING. CLINICAL INFO REVIEWED. PT CODED DURING PACER GENERATOR CHANGE PROCEDURE AND IS INTUBATED. DTR/DPOA KERI PROVIDES INFO. PT AND SPOUSE LIVE IN APT AT [facility]. 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 DTR INDICATES PLAN IS FOR LTC AT [facility] IN [place], [place]. DISCUSSED USING [facility] MEDICARE SKILLED BENEFIT IF INSURANCE WILL AUTH, THEN CONVERTING TO LTC. DTR AGREEABLE. CALL TO NITA IN ADMISSIONS AT [facility] WITH DTR'S PERMISSION. VM TO NITA WITH CM CONTACT #.
--- NOTE | 2019-03-22 12:21 | HC ---
[facility] [place] [address] CONSULTATION Name: URSZULA SALINAS Room #: 244-P ADM IN M.R.#: [id number] Admission: 03/21/19 ������������������ Attend Phys: Brock Ayon MD Discharge: ������������������ Date of : 34 Report #: [id number] THIS REPORT FOR: //name// CC: Brock Brandon DATE OF SERVICE: 03/21/2019 CHIEF COMPLAINT: Bilateral lower extremity ulcerations and edema. HISTORY OF PRESENT ILLNESS: This is an 83-year-old male patient with whom I am familiar from a previous wound care evaluation. He has had bilateral lower extremity venous-type ulcers as well as lymphedema and was here at the hospital today for a pacemaker generator exchange. During the course of the procedure, he became hypotensive, required resuscitative measures and was intubated. He is now in the ICU. I have been asked to see him again with regard to ongoing wound care issues. PAST MEDICAL HISTORY: The patient's past medical history is positive for history of congestive heart failure; cardiomyopathy; permanent atrial fibrillation, status post ablation; diabetes mellitus; lower extremity lymphedema and venous insufficiency and history of moderate debility and protein-calorie malnutrition. The patient is not able to provide any information about himself at this time. MEDICATIONS: The patient's current medications include enoxaparin, famotidine, Mag-Ox, magnesium sulfate, ondansetron, potassium chloride, propofol, vancomycin, aspirin, carvedilol, atorvastatin, diclofenac, doxycycline, glipizide, hydroxyzine, omeprazole, tamsulosin and torsemide. REVIEW OF SYSTEMS: Not obtainable at this time due to the patient's sedation and mechanical ventilation. FAMILY HISTORY: Noncontributory. PHYSICAL EXAMINATION: [id number] SIGNS: At this time include temperature 97.3, pulse 60, respiratory rate of 17 and blood pressure 115/68. GENERAL: This is a chronically ill-appearing male patient who appears to be in minimal distress. He is sedated on a ventilator, orally intubated. HEENT: Head normocephalic. Nose is clear. Throat demonstrates orotracheal endotracheal tube in place. NECK: Supple. [facility] [address] [place] [address] CONSULTATION Name: URSZULA SALINAS Room #: 244-P ADM IN M.R.#: [id number] Admission: 03/21/19 ������������������ Attend Phys: Brock Ayon MD Discharge: ������������������ Date of : 34 Report #: [id number] LUNGS: Clear. HEART: Regular, without murmur. ABDOMEN: Soft. EXTREMITIES: Lower extremities demonstrate that the skin is pink, warm and dry. There is some dry skin and scaling and some mild venous dermatitis. No open ulcerations at this time. LABORATORY DATA: Includes sodium 139, potassium is 4.3, chloride 104, CO2 of 28, BUN 33, creatinine 1.1 and glucose 171. White blood cell count of 6.5 with a hemoglobin of 11.1. CLINICAL IMPRESSION: 1. Venous stasis dermatitis, bilateral lower extremities, with no open ulcerations. 2. History of chronic lymphedema of lower extremities. 3. Congestive heart failure. 4. Ischemic cardiomyopathy. 5. History of permanent atrial fibrillation, status post atrioventricular node ablation. 6. Diabetes mellitus. RECOMMENDATIONS: At this point in time, we will recommend elevation of lower extremities. We will recommend PRAFO boots while he is in bed. While he is sedated, he will need q.2 hour turning and repositioning. We will recommend low air loss mattress. He is currently in ICU on an appropriate ICU bed. We will recommend AmLactin lotion to moisture the lower extremities, Tubigrip stockings to maintain edema control at this time. We will continue to follow him here in the hospital. I appreciate being asked to see the patient again in consultation. ��������������������������������������������� <ELECTRONICALLY SIGNED> ���������������������������������������� By: Vaibhav Travis MD ��������������������������������������������� 03/22/19 1221 1310 0424 Vaibhav Travis MD /nt
[2019-03-22 13:08] LABS: BE(vivo) -2.9 mmol/L (-2 to +3); HCO3 21.3 mmol/L (22.0-26.0); PCO2 35.3 mmHg (35.0-45.0); PO2 108.1 mmHg (80.0-100.0); pH 7.399 (7.360-7.450)
--- NOTE | 2019-03-22 14:51 | NUR ---
WOUND CARE FOLLOW UP; ROUNDING WITH DR RODRIGUEZ. ASSESMENT COMPLETED AND NO CHANGES ARE NESSESSARY AT THIS TIME. RECOMMENDATIONS; CONTINUE CURRENT WOULD CARE ORDERS WITH BEN ARIAS. DISCUSSED WITH RN
--- NOTE | 2019-03-22 19:08 | NUR ---
shift summary: spontaneously moves his head and his juliane lower extremities, not following commands, sr, passed cpap trial, breathing above set rate on vent, ng patent with green drainage, garrett with adequate urine output. updated the daughter/dpoa and questions answered to satisfaction. see assessments for details.
[2019-03-23] VITALS (24 sets, daily range): BP systolic 108–157; BP diastolic 41–75
--- NOTE | 2019-03-23 06:00 | NUR ---
REMAINS INTUBATED. BATHED. SUCTIONED FOR A LARGE AMT OF THICK CLEAR SECRETIONS ORALLY. LUNGS COARSE BILAT. V PACED. CONT NOT TO FOLLOW ANY COMMANDS. REMAINS A DNR. S/C TO EXTUBATE AT [address] JOSÉ. HE WILL BE IN TO SEE PT. WILL CONT TO MONITOR.
--- NOTE | 2019-03-23 06:00 | NUR ---
SPOKE WITH PTS DAUGHTER. SHE IS FULLY AWARE WE ARE EXTUBAING PT THIS AM AND WHAT WILL TRANSPIRE. WILL CONT TO MONITOR
[2019-03-23 10:07] LABS: BE(vivo) -4.2 mmol/L (-2 to +3); HCO3 19.8 mmol/L (22.0-26.0); PCO2 33.3 mmHg (35.0-45.0); PO2 127.7 mmHg (80.0-100.0); pH 7.393 (7.360-7.450); sO2 98.6 % (92.0-98.0)
--- NOTE | 2019-03-23 10:46 | NUR ---
Nutrition: Notified of low petar score. pt coded during generator change. Is currently intubated. Per rounds, plan extubation and palliative approach. RD deferring assessment at this time.
--- NOTE | 2019-03-23 13:44 | NUR ---
FAXED CLINICAL UPDATE TO [facility] SPOKE WITH NITA IN ADM SHE RECEIVED UPDATE. DCP TO FOLLOW.
--- NOTE | 2019-03-23 15:32 | NUR ---
Following for d/c planning needs. Called pt's daughter Pallavi. Referral had been sent to [facility]. Dtr in contact with facility. Will arrange transportation on d/c. tool and production planner faxed updated clinical information to [facility]. WIll remain available to assist as needed.
--- NOTE | 2019-03-23 16:48 | NUR ---
FAXED CLINICAL UPDATE TO [facility] WITH NITA SHE RECEIVED UPDATE. DCP TO FOLLOW.
--- NOTE | 2019-03-23 17:27 | NUR ---
SPOKE WITH PT'S DTR/DPOA KERI BY PHONE LATE DAY. REVIEWED HOSPICVE AND CONTRACTED AGENCIES THAT GO TO [facility] AND PROVIDED HER WITH LIST. ALSO DISCUSSED HOSPICE HOUSE IF NEEDS ONGOING SYMPTOM MANAGEMENT. KERI INDICATES SHE WILL DISCUSS WITH "NURSE FRIENDS" AND MAKE CHOICE AND NOTIFY CM. CASE MANAGEMENT SALES ATTENDANT BUILDING MATERIALS THIS WEEKEND CAN ASSIST NEEDED.
--- NOTE | 2019-03-23 20:54 | NUR ---
SHIFT SUMMARY PATIENT PLACED ON CPAP THIS AM, AICD PORTION TURNED OFF REMAINS IN VENT PACED RHYTHM, PATIENT EXTUBATED AND PLACED ON 2L/NC, RESP RATE IN THE 20'S AND NOTED TO BE A MOUTH BREATHER. ORALLY SUCTIONED HE IS UNABLE TO CLEAR HIS SECRETIONS, O2 SAT IN LOWER TO MID 90'S AFTER SUCTIONING DESATES INTO THE 80'S IF O2 OFF OR CONGESTED. TURNED AND REPOSITIONED FOR COMFORT. REASSURANCE GIVEN TO PATIENT AND FAMILY. SPOKE WITH PANEL COVERER KATHERIN CONCERNING DISCHAGE PLAN FOR HOSPICE. FAMILY UPDATED AND VERBALIZED UNDERSTANDING.
[2019-03-24] VITALS (11 sets, daily range): BP systolic 115–134; BP diastolic 52–70
[2019-03-24 05:04] LABS: HEMATOCRIT 36.4 % (42.0-52.0); HEMOGLOBIN 11.6 gm/dL (14.0-18.0); MCH 29.6 pg (26.0-34.0); MCV 92.6 fL (80.0-100.0); RBC 3.93 mil/uL (4.50-6.00); RDW 18.1 % (10.5-14.5); WBC 9.3 thou/uL (4.0-11.0)
[2019-03-24 05:16] LABS: CALCIUM 9.7 mg/dL (8.5-10.1); POTASSIUM 4.1 mmol/L (3.5-5.1)
--- NOTE | 2019-03-24 07:00 | NUR ---
Pt's breathing became more labored this am. He required frequent suctioning due to unable clear his secretion. Denies pain when I assessed. His VS remains stable. His daughter who is DPOA called for an updates. She expressed to me that her wishes to keep her dad comnfortable for end of his life. He is currently DNR,no comfort care order yet. Will notify Dr.Strom fuller of above.
--- NOTE | 2019-03-24 12:56 | NUR ---
PT CHANGED TO COMFORT CARE EARLIER.LOTS OF FAMILY AT BEDSIDE.D/W PT'S & DTR [facility] VS STAYING AT . THEY NOW WANT PT TO REMAIN AT .LOTS OF EMO SUPPORT GIVEN.--VW
--- NOTE | 2019-03-24 14:30 | NUR ---
FROWNNG & GRIMACING,RESP'D MORE LABORD.FENTANYL GIVEN.FAMILY AT BEDSIDE.--VW
--- NOTE | 2019-03-24 18:22 | NUR ---
RESTLESSNESS INCREASING EARLIER. ATIVAN & FENTANYL GIVEN FOR RESTLESSNESS,COMFORT.TRANSFERRED VIA BED TO [address].FAMILY IN TO PT B/4 HE WAS MOVED TO FLOOR.CARE TURNED OVER TO KASSI ESCALERA.--VW
--- NOTE | 2019-03-24 19:08 | NUR ---
PATIENT TRANSFERRED FROM ICU, REPORT FROM CYN/RN. PATIENT'S EYES OPEN SPONTANEOUSLY, VERY LITTLE REPONSE, CAN MOVE ALL EXTREMITIES. CAN NOT FOLLOW COMMANDS.
--- NOTE | 2019-03-25 04:54 | NUR ---
PT LYING IN BED. COMFORT CARE PROVIDED. ATIVAN AND FENTANYL GIVEN WHEN PT APPEARS TO BE STRUGGLING. ORAL CARE GIVEN WELL. WILL CONTINUE TO PROVIDE FREQUENT OBSERVATION.
[2019-03-25 07:50] VITALS: BP 120/69
--- NOTE | 2019-03-25 10:10 | NUR ---
COMFORT CARE PT ON COMFORT CARE. PT FROWN AND GRIMACE WITH TACTILE STIMULI. O2 2L MAINTAINE. ISO MAINTAINED. PRN MEDS GIVEN. FAMILY AT BEDSIDE.
[2019-03-25 21:06] VITALS: BP 115/53
--- NOTE | 2019-03-25 22:46 | NUR ---
RECEIVED REPORT FROM OFFGOING NURSE, ASSUMED CARE OF PT. FAMILY @ BEDSIDE. ON OXYGEN VIA N/C IN THE MOUTH, @ 2L. PERIPHERAL IV SITE R FORE HAND. NORMAL SALINE RUNNING @ 25 ML/HR. ORAL CARE PROVIDED, MOUTH SWABBED AND LIP CARE PROVIDED. THOMAS DRAINING YELLOW URINE DEPENDENT TO GRAVITY. LORAZEPAM AND FENTANYL PROVIDED VIA IV PUSH. WILL CONTINUE TO MONITOR.
[2019-03-26 03:30] VITALS: BP 120/60
[2019-03-26 04:54] VITALS: BP 120/60
[2019-03-26 07:27] VITALS: BP 114/50
--- NOTE | 2019-03-26 14:47 | NUR ---
PT EARLY THIS AFTERNOON. NURSE NOTIFIED FAMILY AND THEY CAME TO BEDSIDE. NURSE NOTIFIED HOME AND WORKED WITH SECURITY TO MAKE ARRANGEMENTS. NO OTHER CM INTERVENTION INDICATED. CASE CLOSED.
--- NOTE | 2019-03-26 16:18 | NUR ---
Assumed pt care this am, pt is non-responsive and on comfort care. O2 nasal canula in the mouth running at 2L. Oral care was provided every hour, fc draining ammber colored urine. Hourly rounding was done. At 11:35, went into the room, pt's breathing was labored. Pt vs was at a rapid decline called MD (Dr. Vasquez) pt had at 114:45. Inforemed family, all personal belongings taken by the son. All requirements done, informed hourse sup and security, awaiting parlor to draft roller picker the pt.
== END 2019-03-26 17:26 | DRG 208 ==
LOC: CATH 06:38 → ICU 10:11 → 4W 10:11
PROVIDERS: Hospitalist; Internal Medicine; Nurse Practitioner Family; Pediatrics; ADMIT Internal Medicine Cardiovascular Disease
PROC: 5A1945Z Respiratory Ventilation, 24-96 Consecutive Hours (ICD-10-PCS; principal; 2019-03-21)
PROC: 0BH17EZ Insertion of Endotracheal Airway into Trachea, Via Natural or Artificial Opening (ICD-10-PCS; principal; 2019-03-21)
PROC: 0JJT0ZZ Inspection of Trunk Subcutaneous Tissue and Fascia, Open Approach (ICD-10-PCS; principal; 2019-03-21)
DX: J96.01 Acute respiratory failure with hypoxia (principal); I13.0 Hypertensive heart and chronic kidney disease with heart failure and stage 1 through stage 4 chronic kidney disease, or unspecified chronic kidney disease; L03.116 Cellulitis of left lower limb; L03.115 Cellulitis of right lower limb; I46.9 Cardiac arrest, cause unspecified; I89.0 Lymphedema, not elsewhere classified; Z66 Do not resuscitate; I48.91 Unspecified atrial fibrillation; Z51.5 Encounter for palliative care; I95.89 Other hypotension; I87.2 Venous insufficiency (chronic) (peripheral); G47.33 Obstructive sleep apnea (adult) (pediatric); E11.22 Type 2 diabetes mellitus with diabetic chronic kidney disease; R62.7 Adult failure to thrive; M41.9 Scoliosis, unspecified; E78.5 Hyperlipidemia, unspecified; D63.8 Anemia in other chronic diseases classified elsewhere; M19.90 Unspecified osteoarthritis, unspecified site; I25.5 Ischemic cardiomyopathy; K21.9 Gastro-esophageal reflux disease without esophagitis; G89.29 Other chronic pain; I25.10 Atherosclerotic heart disease of native coronary artery without angina pectoris; N18.2 Chronic kidney disease, stage 2 (mild); I49.5 Sick sinus syndrome; Z79.84 Long term (current) use of oral hypoglycemic drugs; Z88.0 Allergy status to penicillin; Z88.8 Allergy status to other drugs, medicaments and biological substances; Z79.82 Long term (current) use of aspirin; Z79.899 Other long term (current) drug therapy; Z88.5 Allergy status to narcotic agent; Z90.49 Acquired absence of other specified parts of digestive tract; Z98.49 Cataract extraction status, unspecified eye; I25.2 Old myocardial infarction; Z95.5 Presence of coronary angioplasty implant and graft; Z87.891 Personal history of nicotine dependence; Z68.26 Body mass index [BMI] 26.0-26.9, adult; I50.9 Heart failure, unspecified
CPT/HCPCS: 10047; 10078; 62110; 62900